=== PATIENT | female | born 1945 | race Caucasian/White ===

== ENCOUNTER → 2016-06-12 | Outpatient (CLI) | payer MEDICARE, OTHER | END | disposition home or self-care (01) | LOC: GMAH 10:39 | PROVIDERS: ATTEND Family Medicine | DX: E78.2 Mixed hyperlipidemia (principal) ==

== ENCOUNTER → 2016-12-13 | Outpatient (CLI) | payer MEDICARE, OTHER | END | disposition home or self-care (01) | LOC: GMAH 10:29 | PROVIDERS: ATTEND Family Medicine | DX: E78.2 Mixed hyperlipidemia (principal) ==

== ENCOUNTER → 2017-01-18 | Outpatient (CLI) | payer MEDICARE, OTHER | END | disposition home or self-care (01) | LOC: LAB.O 14:57 | PROVIDERS: ATTEND Psychiatry & Neurology Neurology | DX: M32.10 Systemic lupus erythematosus, organ or system involvement unspecified (principal); R53.83 Other fatigue; E11.9 Type 2 diabetes mellitus without complications; M25.50 Pain in unspecified joint; R41.3 Other amnesia; F90.9 Attention-deficit hyperactivity disorder, unspecified type; M33.90 Dermatopolymyositis, unspecified, organ involvement unspecified; R50.9 Fever, unspecified; E03.9 Hypothyroidism, unspecified; M51.16 Intervertebral disc disorders with radiculopathy, lumbar region; M35.1 Other overlap syndromes; G35 Multiple sclerosis; G70.00 Myasthenia gravis without (acute) exacerbation; G04.89 Other myelitis; M54.81 Occipital neuralgia; H46.9 Unspecified optic neuritis; M19.90 Unspecified osteoarthritis, unspecified site; M33.22 Polymyositis with myopathy; G61.81 Chronic inflammatory demyelinating polyneuritis; B02.29 Other postherpetic nervous system involvement; M31.6 Other giant cell arteritis; I77.9 Disorder of arteries and arterioles, unspecified; E53.8 Deficiency of other specified B group vitamins; E55.9 Vitamin D deficiency, unspecified ==

== ENCOUNTER 2017-03-22 15:00 | Inpatient (IN) | payer MEDICARE, OTHER ==
--- NOTE | 2017-03-22 15:03 | HP ---
HISTORY OF PRESENT ILLNESS: This 71 year-old white female is a direct admission from Dr. Gustafson's office. She has been getting progressively worse over the last 5 days with sore throat and cough with shortness of breath. She was seen in the clinic of Dr. Gustafson's on Sunday, which was 3 days ago, and had a positive Strep. She received 500 mg of Ancef IM and was started on Keflex 500 mg t.i.d., and has taken it faithfully for the last 3 days. She has gotten worse subsequently with a temperature of 102 degrees yesterday. Cough has been increasing. No evidence of aspiration. She has had fever and chills and her voice has been somewhat hoarse, and been unable to fully talk in full sentences without her voice cracking. Because of the fact that she is getting worse and on chest x-ray today in the clinic showed a left lower lobe infiltrate suggesting a pneumonia. The patient is admitted to the hospital for initiation of pulmonary hygiene, bronchodilation, parenteral antibiotic use and close observation and support. She cannot take corticosteroids because of bad reactions. PAST MEDICAL HISTORY: 1. Coronary artery disease with a couple of stents after angioplasty performed by Dr. Fontana. 2. Hypertension. 3. Hyperlipidemia. 4. History of sick sinus syndrome requiring a pacemaker insertion in 2001. 5. More recently a Strep pharyngitis still symptomatic. PAST SURGICAL HISTORY: 1. Hysterectomy. 2. Appendectomy. 3. Gallbladder removal. 4. Left arm fracture. 5. Two coronary stents after angioplasty. CURRENT MEDICATIONS: Please refer to nurses' notes for a list of medications verified to be taken. ALLERGIES: LOVENOX AND STEROIDS WHICH HAVE AN ADVERSE REACTION FOR HER. FAMILY HISTORY: Positive for heart valves in her brother and diabetes mellitus. 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 She has never smoked. Her primary care physician is Dr. Gustafson and her parking technician is Dr. Fontana. REVIEW OF SYSTEMS: Fairly significant weight gain recently, encouraged to try to help get it off in the future as possible. Some fever and chills with her current illness. HEENT: She does wear hearing aids. Vision is fairly good. LUNGS: Significant exertional dyspnea is evident. Frequent coughing and a small amount of sputum is present. No hemoptysis. CARDIOVASCULAR: No significant chest pains currently and no significant dysrhythmias or palpitations. GASTROINTESTINAL: Appetite is only fair. No significant pain and no constipation. No bleeding in the bowel movements. GENITOURINARY: No dysuria. EXTREMITIES: Trace of edema noted at times. NEUROLOGIC: Somewhat tired generally. No focal weakness. No significant headaches. PHYSICAL EXAMINATION: VITAL SIGNS: Afebrile, pulse 69, blood pressure 189/78, pulse oximetry 96% on room air. Weight 104.9 kilos from the bed scale. GENERAL: The patient is awake, alert and oriented. The patient is a fairly good historian but she does have some difficulty speaking because of some hoarseness and rattliness in her throat. CHEST: Lungs are noted to have somewhat diminished breath sounds but fairly equal bilaterally, especially in the bases with some fine rales noted initially which cleared with deep inspirations, especially in the left base. CARDIOVASCULAR: Heart tones are somewhat distant yet appear to be regular. ABDOMEN: Obese yet soft with no organomegaly, masses or tenderness. EXTREMITIES: Only a trace of edema of the lower extremities more on the right than the left. NEUROLOGIC: No focal neurological deficits. The patient is otherwise awake, alert and oriented and communicative. LABORATORY STUDIES: Pending. X-RAY: X-ray performed in Dr. Gustafson's office showed a left lower lobe infiltrate with repeat in the morning for comparison view after some overnight IV hydration. DIAGNOSES ON ADMISSION: 1. Acute left lower lobe pneumonia probable community acquired failing outpatient therapy and requiring admission for supportive care, initiation of parenteral antibiotics with bronchial hygiene and observation. 2. History of coronary artery disease with 2 coronary stents after angioplasty. 3. History of hypertension. 4. History of hyperlipidemia. 5. History of sick sinus syndrome requiring pacemaker defibrillator insertion in 2001. 6. History of recent positive Streptococcus pharyngitis diagnosed at the onset of her current illness. 7. Exogenous obesity. 8. Febrile illness probably related to the underlying pneumonia process. 9. Hoarseness. Observe for neurological versus secretory etiologies. PLAN: Continue treatment with bronchial hygiene and pulmonary bronchodilators with parenteral antibiotics including Rocephin and Azithromycin after procurement of blood cultures and other lab studies today. Support the cough with some Tessalon. Observe closely and adjust treatment as required. Close followup with Dr. Gustafson on discharge for outpatient followup and management after condition stabilized. #[id number] [facility]
[2017-03-22] MEDS ORDERED: ALBUTEROL SULFATE 2.5 MG/3 ML VIAL NEB PRN (16:13)
[2017-03-22] MEDS ORDERED: ACETAMINOPHEN 325 MG TAB PO PRN (16:13)
[2017-03-22] MEDS ORDERED: TEMAZEPAM 15 MG CAP PO PRN (16:13)
[2017-03-22] MEDS ORDERED: HYDROcodone 5MG/APAP 325MG 1 EA TAB PO PRN (16:13)
[2017-03-22] MEDS ORDERED: MAGNESIUM HYDROXIDE 30 ML UD PO PRN (16:13)
[2017-03-22] MEDS ORDERED: AZITHROMYCIN IV 500 MG in SODIUM CHLORIDE 0.9% 250ML 250 ML IVPB SCH (16:30)
[2017-03-22] MEDS ORDERED: SODIUM CHLORIDE 0.9% 250ML 250 ML ONE (16:54)
[2017-03-22] MEDS ORDERED: AZITHROMYCIN IV 500 MG VIAL IVPB ONE (16:54)
[2017-03-22] MEDS ORDERED: SODIUM CHL 0.9% 50ML MIN-BAG+ 50 ML IVPB ONE (16:54)
[2017-03-22] MEDS ORDERED: cefTRIAXone SODIUM 1 GM VIAL ONE (16:54)
[2017-03-22] MEDS: IV SET AND CAP CHANGE INJ INJ SCH (17:00)
[2017-03-22] MEDS: SODIUM CHLORIDE 0.9% 1000ML 1,000 ML IVS PRN (17:00)
[2017-03-22] MEDS: cefTRIAXone SODIUM 1 GM in SODIUM CHL 0.9% 50ML MIN-BAG+ 50 ML IVPB SCH (17:00)
[2017-03-22] MEDS ORDERED: traMADol HCL 50 MG TAB PO PRN (21:55)
[2017-03-22] MEDS ORDERED: RIVAROXABAN 10 MG TAB ONE (22:14)
[2017-03-22] MEDS: BENZONATATE PERLES 100 MG CAP PO PRN (22:17)
[2017-03-23] MEDS ORDERED: SODIUM CHL 0.9% 50ML MIN-BAG+ 50 ML IVPB ONE ×3 (04:32→23:03)
[2017-03-23] MEDS ORDERED: cefTRIAXone SODIUM 1 GM VIAL ONE ×3 (04:33→23:03)
[2017-03-23] MEDS: cefTRIAXone SODIUM 1 GM in SODIUM CHL 0.9% 50ML MIN-BAG+ 50 ML IVPB SCH ×2 (04:41→16:44)
[2017-03-23] MEDS: OMEPRAZOLE CAP 20 MG CAP PO SCH (06:15)
[2017-03-23] MEDS: SODIUM CHLORIDE 0.9% 1000ML 1,000 ML IVS PRN (06:15)
[2017-03-23] MEDS: LEVALBUTEROL NEBS 1.25 MG/3 ML VIAL INH SCH ×4 (07:21→23:22)
[2017-03-23] MEDS: LOSARTAN POTASSIUM 25 MG TAB PO SCH (08:38)
[2017-03-23] MEDS: FUROSEMIDE 40 MG TAB PO SCH (08:38)
[2017-03-23] MEDS: SPIRONOLACTONE 25 MG TAB PO SCH (08:38)
[2017-03-23] MEDS: AMIODARONE HCL 200 MG TAB PO SCH (08:38)
[2017-03-23] MEDS: NON-FORMULARY MEDICATION 1 EA MIS (Nebivolol Hcl [Bystolic] 10 MG) PO SCH (08:59)
--- NOTE | 2017-03-23 09:10 | RAD ---
EXAM DESCRIPTION: XR CHEST 2 VIEWS CLINICAL HISTORY: Pneumonia COMPARISON: 12/30/2015 TECHNIQUE: PA/lateral FINDINGS: Cardiac pacemaker. Cardiomegaly with vascular congestion. No edema. No alveolar infiltrate or effusion IMPRESSION: Cardiomegaly and vascular congestion. No focal infiltrate identified Electronically signed by: Fede Knapp MD 03/23/2017 9:09 AM [employer]
[2017-03-23] MEDS: SODIUM CHLORIDE 0.9% (FLUSH) 10 ML SYG IV SCH ×2 (10:24→21:01)
[2017-03-23] MEDS ORDERED: BENZOCAINE-MENTH LOZ (CEPACOL) 1 EA LOZ MT PRN (10:39)
[2017-03-23] MEDS ORDERED: FUROSEMIDE INJ 20 MG/2 ML VIAL IV ONE (11:00)
--- NOTE | 2017-03-23 11:22 | PN ---
SUPERVISING PHYSICIAN: Ilya Clemons MD DATE: 03/23/17 SUBJECTIVE: The patient is sitting on the side of her bed. She complains of coughing and also complains of shortness of breath with the coughing, but otherwise has no complaints of chest pain, nausea, vomiting or diarrhea. She continues to feel like her throat is sore and she feels slightly "puffy." OBJECTIVE: VITAL SIGNS: Afebrile. Heart rate 72. Blood pressure 128/56. Respiratory rate 18. Respiratory rate has been as high as 21. O2 saturation 94 %. LUNGS: Scattered crackles throughout and diminished at the bases, especially on the left lower base. She does have some mild scattered rhonchi diffusely as well. CARDIAC: Regular rate and rhythm. ABDOMEN: Soft, nondistended, nontender. Bowel sounds are positive. EXTREMITIES: No cyanosis or clubbing. There is a trace of edema. Bilateral pedal pulses are palpable. NEUROLOGIC: Awake, alert and oriented times three. LABORATORY: WBC 6.3, hemoglobin 11.1, hematocrit 33.7, platelet count 199. Electrolytes are basically within normal limits with the exception of her carbon dioxide is low at 20. BUN 29, creatinine 1.4. Baseline creatinine runs about 0.9 to 1. BNP 335. AST 46, alkaline phosphatase 34, TSH 1.7. Preliminary blood cultures are negative. Chest x-ray shows cardiomegaly with vascular congestion. All other labs and films have been reviewed via the EMR. ASSESSMENT: 1. Acute left lower lobe pneumonia, most likely community acquired that has failed outpatient therapy with present blood cultures pending. 2. History of coronary artery disease with 2 coronary stents after angioplasty. 3. Hypertension. 4. Hyperlipidemia. 5. History of sick sinus syndrome requiring pacemaker/defibrillator insertion in 2001. 6. History of recent positive Streptococcus pharyngitis as outpatient and placed on Keflex. 7. Exogenous obesity. 8. Febrile illness, most likely related to the underlying pneumonia. 9. Hoarseness. Observe for neurological versus secretory etiologies. PLAN: We will continue present supportive care including azithromycin and Rocephin. I have also ordered a sputum culture as she is coughing up quite a bit at this point. I will also get some cough lozenges and saline lock her IV. We will give her a very small dose of Lasix to help with the edema. I have encouraged her to increase her ambulation as well as continue good pulmonary hygiene. I will also order some percussion and labs for in the morning as well as chest x-ray. We will continue to monitor the patient closely and follow as needed. Dr. Clemons is the collaborating physician and available for consultation. #[id number] [facility]
[2017-03-23] MEDS ORDERED: SODIUM CHLORIDE 0.9% 250ML 250 ML ONE (16:34)
[2017-03-23] MEDS ORDERED: AZITHROMYCIN IV 500 MG VIAL IVPB ONE (16:35)
[2017-03-23] MEDS: AZITHROMYCIN IV 500 MG in SODIUM CHLORIDE 0.9% 250ML 250 ML IVPB SCH (17:27)
[2017-03-23] MEDS: RIVAROXABAN 10 MG TAB PO SCH (21:00)
[2017-03-23] MEDS ORDERED: NON-FORMULARY MEDICATION 1 EA MIS (Rivaroxaban [Xarelto] 20 MG) PO SCH (21:00)
[2017-03-23] MEDS: BENZONATATE PERLES 100 MG CAP PO PRN (21:01)
[2017-03-24] MEDS: cefTRIAXone SODIUM 1 GM in SODIUM CHL 0.9% 50ML MIN-BAG+ 50 ML IVPB SCH ×2 (04:22→16:40)
[2017-03-24] MEDS: SODIUM CHLORIDE 0.9% (FLUSH) 10 ML SYG IV PRN (04:22)
[2017-03-24] MEDS: OMEPRAZOLE CAP 20 MG CAP PO SCH (06:01)
[2017-03-24] MEDS: LEVALBUTEROL NEBS 1.25 MG/3 ML VIAL INH SCH ×2 (07:30→16:55)
--- NOTE | 2017-03-24 07:44 | RAD ---
EXAM DESCRIPTION: Chest,2 Views CLINICAL HISTORY: Pneumonia COMPARISON: March 23, 2017 TECHNIQUE: PA/lateral FINDINGS: Cardiomegaly with mild vascular prominence but without overt failure. No discrete parenchymal consolidation. No effusion. Multilead pacing device unchanged. IMPRESSION: 1. Cardiomegaly with vascular congestion stable since comparison study yesterday Electronically signed by: Kem Apodaca MD 03/24/2017 7:43 AM [facility]
[2017-03-24] MEDS: LOSARTAN POTASSIUM 25 MG TAB PO SCH (08:13)
[2017-03-24] MEDS: AMIODARONE HCL 200 MG TAB PO SCH (08:13)
[2017-03-24] MEDS: NON-FORMULARY MEDICATION 1 EA MIS (Nebivolol Hcl [Bystolic] 10 MG) PO SCH (08:13)
[2017-03-24] MEDS: SPIRONOLACTONE 25 MG TAB PO SCH (08:13)
[2017-03-24] MEDS: FUROSEMIDE 40 MG TAB PO SCH (08:13)
[2017-03-24] MEDS: SODIUM CHLORIDE 0.9% (FLUSH) 10 ML SYG IV SCH ×2 (08:13→21:29)
[2017-03-24] MEDS ORDERED: SODIUM CHL 0.9% 50ML MIN-BAG+ 50 ML IVPB ONE (15:38)
[2017-03-24] MEDS ORDERED: AZITHROMYCIN IV 500 MG VIAL IVPB ONE (15:38)
[2017-03-24] MEDS ORDERED: cefTRIAXone SODIUM 1 GM VIAL ONE (15:38)
[2017-03-24] MEDS ORDERED: SODIUM CHLORIDE 0.9% 250ML 250 ML ONE (15:38)
[2017-03-24] MEDS: AZITHROMYCIN IV 500 MG in SODIUM CHLORIDE 0.9% 250ML 250 ML IVPB SCH (17:28)
--- NOTE | 2017-03-24 18:14 | PN ---
DATE: 03/24/17 SUPERVISING PHYSICIAN: Ilya Clemons M.D. SUBJECTIVE: The patient is sitting up in a chair in her hospital room. She complains of a deep cough that comes and goes. It is especially problematic after exertion. She does have some shortness of breath after exertion. Otherwise no complaints of chest pain, nausea, vomiting, diarrhea or constipation. She is feeling better but still feels somewhat weak at times. OBJECTIVE: VITAL SIGNS: She is afebrile, heart rate 72, blood pressure 144/76, respiratory rate 20, O2 sat is 93%. RESPIRATORY: Scattered rhonchi throughout, slightly diminished at the bases. No wheezing or crackles noted. CARDIAC: Regular rate and rhythm. ABDOMEN: Soft, nondistended, non-tender. Bowel sounds are positive. EXTREMITIES: No cyanosis, clubbing or edema. NEUROLOGIC: She is awake, alert and oriented times three. LABORATORY: Her white count is normal at 5.5 with hemoglobin and hematocrit of 11.0 and 33.7. Electrolytes are basically within normal limits with BUN 29, creatinine 1.29. RADIOLOGY: Chest x-ray per radiology interpretation shows cardiomegaly with vascular congestion that is stable since comparison study yesterday. All other labs and films have been reviewed via the EMR. ASSESSMENT: 1. Acute left lower lobe pneumonia most likely community acquired that has failed outpatient therapy and present blood culture showing no growth after 24 hours and her preliminary sputum culture shows normal tray. 2. History of coronary artery disease with 2 coronary stents after angioplasty. 3. Hypertension. 4. Hyperlipidemia. 5. History of sick sinus syndrome requiring pacemaker/defibrillator insertion in 2001. 6. History of recent positive Streptococcus pharyngitis as outpatient placed on Keflex. 7. Exogenous obesity. 8. Febrile illness most likely related to the underlying pneumonia. 9. Hoarseness. PLAN: We will continue present supportive care. She has been instructed to continue with her good pulmonary hygiene and to ambulate more in the halls. She should be able to be discharged tomorrow. I have repeated some labs for in the morning to make sure they remain stable. I have added Mucinex. We will continue to monitor the patient closely. Plan for discharge tomorrow. Dr. Clemons is the collaborating physician available for consultation. #[id number] [facility]
[2017-03-24] MEDS: guaiFENesin ER TAB 600 MG TAB PO SCH (20:59)
[2017-03-24] MEDS: RIVAROXABAN 10 MG TAB PO SCH (20:59)
[2017-03-24] MEDS: BENZONATATE PERLES 100 MG CAP PO PRN (22:46)
[2017-03-25] MEDS: LEVALBUTEROL NEBS 1.25 MG/3 ML VIAL INH SCH ×3 (00:16→16:07)
[2017-03-25] MEDS ORDERED: SODIUM CHL 0.9% 50ML MIN-BAG+ 50 ML IVPB ONE ×2 (04:19→16:13)
[2017-03-25] MEDS ORDERED: cefTRIAXone SODIUM 1 GM VIAL ONE ×2 (04:20→16:14)
[2017-03-25] MEDS: SODIUM CHLORIDE 0.9% (FLUSH) 10 ML SYG IV PRN (04:24)
[2017-03-25] MEDS: cefTRIAXone SODIUM 1 GM in SODIUM CHL 0.9% 50ML MIN-BAG+ 50 ML IVPB SCH ×2 (04:25→16:22)
[2017-03-25] MEDS: OMEPRAZOLE CAP 20 MG CAP PO SCH (06:20)
[2017-03-25] MEDS: NON-FORMULARY MEDICATION 1 EA MIS (Nebivolol Hcl [Bystolic] 10 MG) PO SCH (09:37)
[2017-03-25] MEDS: LOSARTAN POTASSIUM 25 MG TAB PO SCH (09:37)
[2017-03-25] MEDS: SPIRONOLACTONE 25 MG TAB PO SCH (09:37)
[2017-03-25] MEDS: FUROSEMIDE 40 MG TAB PO SCH (09:37)
[2017-03-25] MEDS: SODIUM CHLORIDE 0.9% (FLUSH) 10 ML SYG IV SCH ×2 (09:37→20:44)
[2017-03-25] MEDS: AMIODARONE HCL 200 MG TAB PO SCH (09:37)
[2017-03-25] MEDS: guaiFENesin ER TAB 600 MG TAB PO SCH ×2 (09:40→20:44)
--- NOTE | 2017-03-25 13:44 | PCM.CORE ---
Physician DVT/VTE - Prophylaxis Currently: Patient already on anticoagulation therapy - xarelto - Nurse DVT Assessment & Total Each Risk Factor Represents 2 Points: Age 60-74 Each Risk Factor is 1 Point: Obesity (BMI >25), Serious Lung disease (pnemonia < 1month, COPD, emphysema,etc) DVT Assessment Score: 4 - 3-4 High Risk Treatments: Early Ambulation *, Sequential Compression Device
--- NOTE | 2017-03-25 15:58 | PN ---
DATE: 03/25/17 SUPERVISING PHYSICIAN: Ilya Clemons M.D. SUBJECTIVE: The patient is sitting on the edge of the bed. She continues to have a nonproductive cough that does result in her having some shortness of breath. She also continues to have some exertional dyspnea. She is noting that she is weak and is concerned that she is not able to function fully at home that is safe if she goes home today as she is only able to barely walk from the hallway without getting significantly short of breath and feeling very weak. OBJECTIVE: VITAL SIGNS: She remains afebrile, temperature 97.9, pulse 72, blood pressure 160/71, respiratory rate 20, satting 97% on room air at rest. Ambulation studies showed that she was satting 96% prior to ambulation and was able to ambulate 224 feet with only a mild desaturation to 94 on room air. The patient noted that she was weak. CHEST: Lung sounds are diminished with no obvious wheezing but continues with some faint rhonchi throughout. HEART: Slightly irregular rate and rhythm. ABDOMEN: Soft, nondistended, non-tender with positive bowel sounds. EXTREMITIES: No cyanosis, clubbing or edema. NEUROLOGIC: She is alert and oriented times three. LABORATORY: White count is 7,000, hemoglobin 10.9, hematocrit 33.4, platelet count 210,000. Differential today shows without a left shift. Chemistries show normal electrolytes with potassium 4.0, BUN 22, creatinine 1.16. MICROBIOLOGY: Blood cultures remain negative at 48 hours. Sputum culture showed normal tray at 24 hours. RADIOLOGY: No additional radiographic studies were available for review. ASSESSMENT: 1. Acute left lower lobe pneumonia community acquired having failed to respond to outpatient treatment plan requiring initiation of aggressive bronchial hygiene and parenteral antibiotics showing slow improvement. 2. History of coronary artery disease with 2 coronary stents. 3. Hypertension. 4. Hyperlipidemia. 5. History of sick sinus syndrome requiring pacemaker defibrillator insertion in 2001. 6. History of recently being treated for Streptococcus pharyngitis on Keflex previously. 7. Exogenous obesity. 8. Febrile illness related to underlying pneumonia. 9. Hoarseness related to underlying upper respiratory infection with acute bronchitis secondary to previous Streptococcus pharyngitis with pneumonia left lower lobe as noted in #1. 10. Deconditioning secondary to #1. PLAN: The patient is showing continued need for ongoing aggressive pulmonary hygiene and an additional 24 hours of IV antibiotics. She is concerned that she does live alone and is significantly weakened and deconditioned at this point, and is afraid that she will be unable to safely take care of herself tonight. I discussed with her that we will ambulate her in efforts to increase her endurance and continue with the current treatment with aggressive pulmonary hygiene and antibiotics with anticipation of discharging home tomorrow, or if continues to show significant deconditioning possible admission to [facility] for ongoing physical therapy and reconditioning. Until discharge, will continue to monitor and treat appropriately. #[id number] [facility]
[2017-03-25] MEDS ORDERED: SODIUM CHLORIDE 0.9% 250ML 250 ML ONE (16:13)
[2017-03-25] MEDS ORDERED: AZITHROMYCIN IV 500 MG VIAL IVPB ONE (16:14)
[2017-03-25] MEDS: AZITHROMYCIN IV 500 MG in SODIUM CHLORIDE 0.9% 250ML 250 ML IVPB SCH (17:22)
[2017-03-25] MEDS: IV SET AND CAP CHANGE INJ INJ SCH (18:50)
[2017-03-25] MEDS: BENZONATATE PERLES 100 MG CAP PO PRN (20:44)
[2017-03-25] MEDS: RIVAROXABAN 10 MG TAB PO SCH (20:44)
[2017-03-26] MEDS: LEVALBUTEROL NEBS 1.25 MG/3 ML VIAL INH SCH ×2 (00:30→08:50)
[2017-03-26] MEDS ORDERED: SODIUM CHL 0.9% 50ML MIN-BAG+ 50 ML IVPB ONE (04:21)
[2017-03-26] MEDS ORDERED: cefTRIAXone SODIUM 1 GM VIAL ONE (04:21)
[2017-03-26] MEDS: SODIUM CHLORIDE 0.9% (FLUSH) 10 ML SYG IV PRN (04:41)
[2017-03-26] MEDS: cefTRIAXone SODIUM 1 GM in SODIUM CHL 0.9% 50ML MIN-BAG+ 50 ML IVPB SCH (04:42)
[2017-03-26] MEDS: OMEPRAZOLE CAP 20 MG CAP PO SCH (06:31)
--- NOTE | 2017-03-26 07:19 | RAD ---
EXAM DESCRIPTION: Chest,2 Views CLINICAL HISTORY: pneumonia COMPARISON: March 24, 2017 FINDINGS: A multilead cardiac pacemaker remains in place. The heart is slightly enlarged but stable. Bilateral perihilar interstitial prominence is noted, extending into the left lung base. No airspace consolidation or pleural effusion. There is no pneumothorax or acute fracture. IMPRESSION: Stable cardiomegaly with probable pulmonary vascular congestion, also unchanged from 2 days prior. Left basilar pneumonia is a less likely consideration. Electronically signed by: Adolfo Pillai MD 03/26/2017 7:18 AM [facility]
[2017-03-26] MEDS: LOSARTAN POTASSIUM 25 MG TAB PO SCH (08:47)
[2017-03-26] MEDS: guaiFENesin ER TAB 600 MG TAB PO SCH (08:47)
[2017-03-26] MEDS: SODIUM CHLORIDE 0.9% (FLUSH) 10 ML SYG IV SCH (08:48)
[2017-03-26] MEDS: FUROSEMIDE 40 MG TAB PO SCH (08:48)
[2017-03-26] MEDS: AMIODARONE HCL 200 MG TAB PO SCH (08:48)
[2017-03-26] MEDS: SPIRONOLACTONE 25 MG TAB PO SCH (08:48)
[2017-03-26] MEDS: NON-FORMULARY MEDICATION 1 EA MIS (Nebivolol Hcl [Bystolic] 10 MG) PO SCH (08:50)
[2017-03-26] MEDS ORDERED: AZITHROMYCIN 250 MG TAB PO ONE (09:26)
[2017-03-26 10:16] VITALS: BP 145/71; TEMP 98; O2SAT 97
--- NOTE | 2017-04-01 20:25 | DS ---
SUPERVISING PHYSICIAN: Fede Mcgarry M.D. DISCHARGE DIAGNOSIS: 1. Acute left lower lobe pneumonia community acquired having failed to respond to outpatient treatment plan requiring hospitalization for initiation of aggressive bronchial hygiene and parenteral antibiotics showing good clinical improvement prior to discharge. 2. History of coronary artery disease with 2 coronary stents previously. 3. Hypertension. 4. Hyperlipidemia. 5. History of sick sinus syndrome requiring pacemaker defibrillator insertion in 2001. 6. History of recently being treated for Streptococcus pharyngitis on Keflex previously. 7. Exogenous obesity. 8. Febrile illness related to underlying pneumonia. 9. Hoarseness related to underlying upper respiratory infection with acute bronchitis secondary to previous Streptococcus pharyngitis with pneumonia left lower lobe as noted in #1. 10. Deconditioning secondary to #1. REASON FOR HOSPITALIZATION: Ms. Mcdonald is a 71 year-old female patient of Dr. Gustafson'hannah. She was directly admitted from Dr. Gustafson's office. It was noted that she had been getting progressively worse over the last 5 days with sore throat and cough with shortness of breath. She had been seen in the clinic by Dr. Gustafson on the Sunday prior to admission which was 3 days previous, and had a positive Strep screen. She received 500 mg of Ancef IM and was started on Keflex 500 mg t.i.d., and had been taking it faithfully for the last 3 days prior to admission. She had gotten worse subsequently with a temperature of 102 degrees. Cough had been increasing. There was no evidence of aspiration. She has had fever and chills and her voice has been somewhat hoarse, and has been unable to fully talk in full sentences without her voice cracking. Because of the fact that she is getting worse and on chest x-ray in the clinic showed a left lower lobe infiltrate suggesting a pneumonia, the patient is admitted to the hospital for initiation of ongoing treatment with pulmonary hygiene, bronchodilation, parenteral antibiotics and close observation. It is noted that she cannot take corticosteroids due to a bad reaction. LABORATORY: White count on admission was 6,900, at discharge was 7,000. Hemoglobin and hematocrit were stable and at discharge were 10.9 and 32.4. Platelet count 210,000. Differential never showed a left shift. Chemistries showed normal electrolytes on admission and at discharge. BUN initially was 28 , creatinine 1.4, at discharge creatinine was 1.16, BUN was 22. Calcium was normal at 9.0. She had an elevated BNP that was 355. She had a slightly elevated AST that was 46, ALT was normal at 43, alkaline phosphatase was 34. Urinalysis showed to be within normal limits. MICROBIOLOGY: She had a sputum culture that showed normal tray at 48 hours. She had 2 sets of blood cultures that were negative at 5 days. RADIOLOGY: Initial chest x-ray on the morning after admission per radiology interpretation 2 view showed no focal infiltrate identified with cardiomegaly and vascular congestion. She had several repeated chest x-rays and on the morning of discharge final x-ray per radiology interpretation 2 view showed stable cardiomegaly with probable pulmonary vascular congestion, unchanged 2 days previously with left basilar pneumonia was less likely consideration. HOSPITAL COURSE: Ms. Mcdonald was admitted to the hospital as noted for treatment of underlying exacerbation of COPD and pneumonia. She was started on antibiotics initially with Azithromycin and Rocephin. She was started on breathing treatments with Xopenex and showed good clinical response, and felt clinically stable enough and improved to be discharged home to continue with outpatient treatment. PLAN: Ms. Mcdonald was discharged on 03/26/17 with instructions to followup in the clinic with Dr. Gustafson as scheduled on 03/29/17. She was encouraged to take a probiotic of choice [id number] for 10 days to help prevent diarrhea associated with antibiotics. She is to return to the hospital should any concerning symptoms. Diet at discharge was usual diet. Activity was to increase activity as tolerated. New prescriptions at discharge included: 1. Xopenex 1.25 mg every 4 hours as needed, #30. 2. Tessalon Perles 100 mg 3 times a day as needed, #20. 3. Ceftin 500 mg twice daily, #10. All other medications prior to admission were continued. Discharge condition was stable and improved. #[id number] [facility]
== END 2017-03-26 11:05 | disposition home or self-care (01) | DRG 190 ==
LOC: MS 15:00
PROVIDERS: ADMIT Emergency Medicine; ATTEND Nurse Practitioner Family
DX: J44.0 Chronic obstructive pulmonary disease with (acute) lower respiratory infection (principal); J18.9 Pneumonia, unspecified organism; Z68.41 Body mass index [BMI] 40.0-44.9, adult; J44.1 Chronic obstructive pulmonary disease with (acute) exacerbation; I25.10 Atherosclerotic heart disease of native coronary artery without angina pectoris; I10 Essential (primary) hypertension; E78.5 Hyperlipidemia, unspecified; R49.0 Dysphonia; J20.2 Acute bronchitis due to streptococcus; E66.9 Obesity, unspecified; Z88.8 Allergy status to other drugs, medicaments and biological substances; Z95.5 Presence of coronary angioplasty implant and graft; Z95.0 Presence of cardiac pacemaker

== ENCOUNTER → 2017-07-05 | Outpatient (CLI) | payer MEDICARE, OTHER ==
--- NOTE | 2017-07-05 10:56 | CT ---
EXAM DESCRIPTION: Cervical Spine CLINICAL HISTORY: RADICULOPATHY COMPARISON: None Available. TECHNIQUE: Cervical CT is performed with thin-section axial imaging. MPRs are created and reviewed as well. This exam was performed according to our departmental dose-optimization program, which includes automated exposure control, adjustment of the mA and/or kV according to patient size and/or use of iterative reconstruction technique. FINDINGS: CT of the cervical spine demonstrates reversal of the normal lordosis with advanced multilevel disc degenerative disease with at all levels with relative sparing of the C2-3 to C7-T1 level. Large anterior spurs are present at C3-4, C4-5, and C5-6. Bone window images demonstrate no evidence of fracture or subluxation with at least mild posterior bony ridging most prominent at C4-5 and C5-6 and to a lesser extent C6-7 that appears to be partially fused at the disc space and with minimal one or 2 mm of anterior subluxation at the C3-4 level on a degenerative basis anterior degenerative changes at the C1-2 articulation are noted with and adequate foramen magnum and upper cervical spinal canal. Central canal is widely patent at C2-3 with some uncinate process hypertrophy encroaching upon the entrance to the left neural foramen. The right foramen is adequate. At C3-4 mild annular bulge and/or bony ridging is present with adequate canal and neural foramina. At C4-5 bony ridging diffusely and moderate AP diameter canal narrowing on a degenerative basis is present with mild narrowing of both neural foramina. At C5-C6 disc narrowing and broad-based disc osteophyte complex with borderline AP diameter canal stenosis and right foraminal narrowing is present. A lateralizing herniation is not apparent. At C6-C7, bony ridging in the midline with moderate AP diameter canal narrowing is present with a partially fused disc space and mildly narrowed foramen and symmetrically. At C7-T1, mild annular bulge and borderline AP diameter canal narrowing is present. Severe facet arthropathy is not present on either the right or left with only mild degenerative changes noted. IMPRESSION: Multilevel advanced degenerative disc disease and loss of normal lordosis with multilevel annular bulges and posterior bony ridging with AP diameter canal stenosis as noted above and modest foraminal narrowing. No malalignment of the bony spine is seen and no fracture or significant abnormal subluxation noted. Very little facet arthropathy noted. Electronically signed by: Fede Weiner MD 07/05/2017 10:55 AM CDT
--- NOTE | 2017-07-05 11:08 | CT ---
EXAM DESCRIPTION: Lumbar Spine CLINICAL HISTORY: 72 years, Female, RADICULOPATHY COMPARISON: None TECHNIQUE: Lumbar CT with thin-section axial imaging with reconstructed MPR images reviewed as well. This exam was performed according to our departmental dose-optimization program, which includes automated exposure control, adjustment of the mA and/or kV according to patient size and/or use of iterative reconstruction technique. FINDINGS: CT of the lumbar spine demonstrates multilevel disc degeneration with significant narrowing anteriorly at the T12-L1 level and significant posterior bony ridging and spurring at the L1-2 level and disc calcification at the better preserved the disc space L2-3. Vertebral height is maintained with essentially normal alignment with rather marked hypertrophic changes in the lower lumbar spine facet joints particularly on the left at L4-5 and on the right at this level and L5-S1. The disc contour at T10-11 is essentially normal and a modest annular bulge with thecal sac lower limits of normal at T11-12 is noted with minimal annular prominence posteriorly at the T12-L1 level. At L1-2 some disc calcification and a moderate annular bulge of the disc osteophyte complex with some calcification of the posterior annulus is evident slightly more prominent on the left than the right with left greater than right facet arthropathy and underlying multifactoral spinal stenosis with some encroachment in the region of the left lateral recess. Moderately narrowed left L1 neural foramen and milder narrowed right L1 neural foramen noted. Disc calcification at L2-3 borderline Stenosis with disc calcification at L2-3 with modest annular bulge and modest left greater than right facet arthropathy with borderline symmetric AP diameter canal stenosis evident. The neural foramina are adequate. At L3-4 moderate symmetric annular bulge with moderately severe facet arthropathy with medial bony overgrowth and ligamentum flavum hypertrophy with multifactoral severe central stenosis predominantly in a transverse diameter. The neural foramina are adequate. At L4-5, very severe multifactoral central stenosis with markedly hypertrophic and degenerative facet joints and modest annular bulge. Almost no remaining spinal canal or thecal sac is noted with adequate neural foramina bilaterally. At L5-S1: Annular bulge with adequate central canal and right greater than left facet arthropathy with modest bilateral foraminal encroachment particularly inferiorly on the left internal lesser extent on the right. IMPRESSION: 1. Moderately severe L3-4 and very severe L4-5 multifactoral central stenosis secondary to facet arthropathy and annular bulges. 2. Borderline spinal canal stenosis at L2-3 and at L1-2. 3. Adequate central canal L5-S1 with borderline or mild foraminal narrowing secondary to facet arthropathy. Electronically signed by: Fede Weiner MD 07/05/2017 11:07 AM CDT
== END ==
LOC: CT 09:00
PROVIDERS: ATTEND Psychiatry & Neurology Neurology
DX: M54.12 Radiculopathy, cervical region (principal); M48.02 Spinal stenosis, cervical region; M54.16 Radiculopathy, lumbar region; M48.061 Spinal stenosis, lumbar region without neurogenic claudication

== ENCOUNTER → 2017-08-29 | Outpatient (CLI) | payer MEDICARE, OTHER | LOC: GMAH 11:47 | PROVIDERS: ATTEND Family Medicine | DX: I10 Essential (primary) hypertension (principal) ==

== ENCOUNTER → 2017-08-30 | Outpatient (CLI) | payer MEDICARE, OTHER ==
--- NOTE | 2017-09-04 08:26 | MAM ---
EXAM DESCRIPTION: 3D Screening BILATERAL : Digital Mammography. CLINICAL HISTORY: 72 years Female SCREENING . No complaints. No family history breast cancer. Postmenopausal. No HRT. COMPARISON: 2-D digital screening bilateral study 04/02/2014. No prior reports available. TECHNIQUE: Bilateral CC and MLO projection full-field images, 3-D tomosynthesis digital mammographic technique. Also bilateral synthesized CC/ MLO full-field images. CAD not utilized. FINDINGS: The breast parenchymal density pattern is: Scattered areas of fibroglandular density. No skin thickening or nipple retraction bilateral solitary microcalcifications and coarse calcifications. Pacemaker and pacing lead partially obscuring the posterior and upper left breast. Right axillary lymph nodes. No focal, stellate mass or density, focal asymmetry , and no suspicious microcalcifications bilaterally. Stable mammograms compared to prior study, taking into account differences in mammographic technique IMPRESSION: BI-RADS CATEGORY: 2 - BENIGN FINDINGS. FOLLOW UP: Routine digital bilateral screening, one year interval from August 2017. Written communication explaining the IMPRESSION and follow-up, will be mailed to the patient and referring health care provider. According to the [employer], yearly mammograms are recommended starting at age 40 and continuing as long as a woman is in good health. Any breast change noted on a breast self-exam should be reported promptly to the patient's healthcare provider. Breast MRI is recommended for women with an approximately 20-25% or greater lifetime risk of breast cancer, including women with a strong family history of breast or ovarian cancer and women who have been treated for Hodgkin's disease. A negative mammographic report should not delay tissue diagnosis in patients with significant clinical history or physical findings. Extremely dense breast tissue limits the sensitivity of digital mammography. Electronically signed by: Juan Francisco Morin MD 09/04/2017 8:25 AM CDT
== END ==
LOC: MAMMO 14:04
PROVIDERS: ATTEND Family Medicine
DX: Z12.31 Encounter for screening mammogram for malignant neoplasm of breast (principal)

== ENCOUNTER 2017-12-22 17:56 | Emergency (ER) | payer MEDICARE, OTHER ==
[2017-12-22] MEDS ORDERED: SODIUM CHLORIDE 0.9% 1000ML 1,000 ML IVS ONE (18:16)
--- NOTE | 2017-12-22 18:26 | ED.PDOC ---
History of Present Illness - General Chief Complaint: GI Problem Stated Complaint: diarrhea x4 days Time Seen by Provider: 12/22/17 18:15 Source: patient Exam Limitations: no limitations - History of Present Illness Initial Comments: Jazmin Mcdonald 72 y/o female stated that she had watery diarrhea on and off for the last 3 days with abdominal cramps.No nausea/vomiting/fever /chills.No recent antibiotic use ill contact or foreign travel. Timing/Duration: intermittent, other - 3 days Severity: moderate Improving Factors: nothing Worsening Factors: eating Associated Symptoms: other - see hpi Allergies/Adverse Reactions: Allergies Enoxaparin [From Lovenox] Allergy (Verified 12/22/17 18:09) Hives Steroids Allergy (Severe, Uncoded 12/22/17 18:09) Anaphylaxis Pt states that after administration of any steroids her mouth swells and she can not speak Home Medications: Ambulatory Orders Acetaminophen [Tylenol Extra Strength] 500 mg PO Q6H PRN 09/05/12 Ascorbic Acid [Vitamin C] 2,000 mg PO DAILY 09/05/12 Cholecalciferol [Vitamin D3] 1,000 unit PO TID 09/05/12 Fenofibrate 160 mg PO DAILY 09/05/12 Fish Oil-Cholecalciferol [Fish Oil + D3 7866-9264 mg-Unit] 2 cap PO AM 09/05/12 Garlic [Odorless Garlic] 500 mg PO DAILY 09/05/12 Pantoprazole Tablet [Protonix] 40 mg PO DAILY 09/05/12 Furosemide [Lasix] 40 mg PO DAILY 06/02/14 Benzonatate Perles [Tessalon Perles] 200 mg PO TID PRN #20 cap 09/15/15 Tramadol HCl [Ultram] 50 mg PO Q6HRS PRN #20 tab 09/15/15 Amiodarone HCl 200 mg PO DAILY 03/22/17 Atorvastatin Calcium [Lipitor] 20 mg PO DAILY 03/22/17 Losartan Potassium 25 mg PO DAILY 03/22/17 Nebivolol HCl [Bystolic] 10 mg PO DAILY 03/22/17 Rivaroxaban [Xarelto] 20 mg PO BEDTIME 03/22/17 Spironolactone 25 mg PO DAILY 03/22/17 Benzonatate Perles [Tessalon Perles] 100 mg PO TID PRN #20 cap 03/26/17 Cefuroxime Axetil [Ceftin] 500 mg PO BID #10 tab 03/26/17 Levalbuterol Nebs [Xopenex NEBS] 1.25 mg INH Q4HR PRN #30 vial 03/26/17 guaiFENesin ER TAB [Mucinex Tab] 1,200 mg PO BID tab 03/26/17 Review of Systems - Review of Systems Constitutional: States: no symptoms reported EENTM: States: no symptoms reported Respiratory: States: no symptoms reported Cardiology: States: no symptoms reported Genitourinary: States: see HPI Musculoskeletal: States: no symptoms reported Skin: States: no symptoms reported Neurological: States: no symptoms reported Past Medical History (General) - Patient Medical History Hx Seizures: No Hx Stroke: No Hx Dementia: No Hx Asthma: No Hx of COPD: No Hx Cardiac Disorders: Yes - sick sinus syndrome Hx Congestive Heart Failure: No Hx Pacemaker: Yes Hx Hypertension: Yes Hx Thyroid Disease: No Hx Diabetes: No Hx Gastroesophageal Reflux: No Hx Renal Disease: No Hx Cancer: No Hx of HIV: No Hx Hepatitis C: No Hx MRSA: No Surgical History: appendectomy, cholecystectomy, pacemaker, other - hysterectomy - Vaccination History Hx Tetanus, Diphtheria Vaccination: No Hx Influenza Vaccination: Yes Hx Pneumococcal Vaccination: Yes - Social History Hx Tobacco Use: No Hx Chewing Tobacco Use: No Hx Alcohol Use: No Hx Substance Use: No Hx Substance Use Treatment: No Hx Depression: No Hx Physical Abuse: No Hx Emotional Abuse: No Hx Suspected Abuse: No - Activities of Daily Living Patient Lives Alone: Yes Grooming Ability: Standby Assistance Eating (Feeding) Ability: Independent Toileting Ability: Independent - Female History Patient : No Family Medical History - Family History Brother Living Status: Hx Cardiac Disease: Yes - brother/sister Hx Family Cancer: - natividad pondkaiser hartyamile Hx Family;Other: DEMENTIA-mom Grandparents Living Status: Hx Family Cancer: Yes Mother Living Status: Hx Family Asthma: No Hx Family Congestive Heart Failure: No Hx Family Hypertension: No Hx Family Stroke: No Hx Cardiac Disease: No Hx Family Diabetes: No Hx Family Cancer: No Hx Family;Other: Dementia Physical Exam - Physical Exam General Appearance: Alert, Comfortable, No apparent distress Eye Exam: bilateral normal Ears, Nose, Throat: hearing grossly normal, normal ENT inspection Neck: non-tender, full range of motion, supple, normal inspection Respiratory: chest non-tender, lungs clear, normal breath sounds Cardiovascular/Chest: normal peripheral pulses, regular rate, rhythm, no murmur Peripheral Pulses: radial,right: 2+, radial,left: 2+ Gastrointestinal/Abdominal: normal bowel sounds, non tender, soft, no organomegaly Back Exam: no CVA tenderness, no vertebral tenderness Extremity: no pedal edema, no calf tenderness Neurologic: alert, oriented x 3 Skin Exam: normal color, warm/dry Lymphatic: no adenopathy Progress - Progress Progress: 12/22/17 18:38 Vital Signs - 8 hr 12/22/17 18:04 Temperature 99.4 F Pulse Rate [ 70 pulse ox] Respiratory 20 Rate Blood Pressure 134/64 [Left Arm] O2 Sat by Pulse 96 Oximetry - Results/Orders Results/Orders: 12/22/17 18:16 IV Care:Saline Lock per Protoc QSHIFT Laboratory Results - last 24 hr 12/22/17 12/22/17 18:16 18:38 WBC 9.4 RBC 3.97 L Hgb 12.7 Hct 39.1 MCV 98.5 MCH 31.9 H MCHC 32.5 L RDW 13.7 Plt Count 281 MPV 8.6 Absolute Neuts (auto) 6.10 Absolute Lymphs (auto) 2.00 Absolute Monos (auto) 1.10 H Absolute Eos (auto) 0.20 Absolute Basos (auto) 0.00 Neutrophils % 65.0 Lymphocytes % 20.8 Monocytes % 12.0 H Eosinophils % 1.9 Basophils % 0.3 PT 12.3 H INR 1.23 H PTT (SP) 29.6 Sodium 141 Potassium 4.4 Chloride 104 Carbon Dioxide 28 Anion Gap 13.4 BUN 31 H Creatinine 1.49 H BUN/Creatinine Ratio 20.8 H Random Glucose 92 Serum Osmolality 287.4 Calcium 10.2 Magnesium 2.1 Total Bilirubin 0.5 Direct Bilirubin 0.1 Indirect Bilirubin 0.4 AST 23 ALT 24 Alkaline Phosphatase 67 Creatine Kinase 48 CK-MB (CK-2) 1.3 CK-MB (CK-2) % Not Reportable Troponin I 0.03 B-Natriuretic Peptide 168.0 H Serum Total Protein 7.8 Albumin 4.2 Urine Color Yellow Urine Appearance Clear Urine pH 6.0 Ur Specific [place] 1.015 Urine Protein Negative Urine Glucose (UA) Negative Urine Ketones Negative Urine Blood Negative Urine Nitrite Negative Urine Bilirubin Negative Urine Urobilinogen 0.2 Ur Leukocyte Esterase Negative Urine RBC 0 Urine WBC 0 Ur Epithelial Cells 3-5 Urine Bacteria 0 Departure - Departure Clinical Impression: Abdominal cramps Diarrhea Qualifiers: Diarrhea type: unspecified type Qualified Code(s): R19.7 - Diarrhea, unspecified Time of Disposition: 20:41 Disposition: Discharge to Home or Self Care Condition: Fair Departure Forms: ED Discharge - Pt. Copy, Patient Portal Self Enrollment Instructions: Viral Gastroenteritis, Adult (DC), Viral Gastroenteritis Diet: other - AVOID GREASY,spicy foods and dairy products Referrals: Keith Gustafson MD [Primary Care Provider] - 1-2 Weeks Home Medications: Ambulatory Orders Acetaminophen [Tylenol Extra Strength] 500 mg PO Q6H PRN 09/05/12 Ascorbic Acid [Vitamin C] 2,000 mg PO DAILY 09/05/12 Cholecalciferol [Vitamin D3] 1,000 unit PO TID 09/05/12 Fenofibrate 160 mg PO DAILY 09/05/12 Fish Oil-Cholecalciferol [Fish Oil + D3 5496-6423 mg-Unit] 2 cap PO AM 09/05/12 Garlic [Odorless Garlic] 500 mg PO DAILY 09/05/12 Pantoprazole Tablet [Protonix] 40 mg PO DAILY 09/05/12 Furosemide [Lasix] 40 mg PO DAILY 06/02/14 Benzonatate Perles [Tessalon Perles] 200 mg PO TID PRN #20 cap 09/15/15 Tramadol HCl [Ultram] 50 mg PO Q6HRS PRN #20 tab 09/15/15 Amiodarone HCl 200 mg PO DAILY 03/22/17 Atorvastatin Calcium [Lipitor] 20 mg PO DAILY 03/22/17 Losartan Potassium 25 mg PO DAILY 03/22/17 Nebivolol HCl [Bystolic] 10 mg PO DAILY 03/22/17 Rivaroxaban [Xarelto] 20 mg PO BEDTIME 03/22/17 Spironolactone 25 mg PO DAILY 03/22/17 Benzonatate Perles [Tessalon Perles] 100 mg PO TID PRN #20 cap 03/26/17 Cefuroxime Axetil [Ceftin] 500 mg PO BID #10 tab 03/26/17 Levalbuterol Nebs [Xopenex NEBS] 1.25 mg INH Q4HR PRN #30 vial 03/26/17 guaiFENesin ER TAB [Mucinex Tab] 1,200 mg PO BID tab 03/26/17 Additional Instructions: BRAT DIET-banana,rice,applesauce,iced tea,yolanda [place], crackers,saltines ,jello for the next 24 hours then to advance diet as tolerated;wash hands thoroughly after each bowel movement.Follow up with primary Md 25 December 2017 as needed
[2017-12-22 19:28] VITALS: O2SAT 99
[2017-12-22 20:23] VITALS: BP 141/74
--- NOTE | 2017-12-22 20:36 | CT ---
CT ABDOMEN PELVIS WITHOUT IV CONTRAST Exam date: 12/22/2017 7:42 PM CDT Comparison: CT abdomen pelvis September 04, 2012 Indication: Diarrhea, abdominal pain Technique: Multiple helical axial images were obtained through the abdomen and pelvis without intravenous contrast. Sagittal and coronal reformatted images are reviewed as well. All CT scans at this facility use dose modulation, iterative reconstruction, and/or weight-based dosing when appropriate to reduce radiation dose to as low as reasonably achievable. Findings: Lung bases: Cardiac pacing leads noted. Liver: Homogenous attenuation is demonstrated. Gallbladder/biliary: Cholecystectomy changes noted. No evidence of biliary ductal dilatation. Pancreas: Unremarkable. Spleen: Unremarkable. Adrenals: Unremarkable. Kidneys and ureters: There are a few cysts in the right kidney measuring up to 1.3 cm. No evidence of renal or ureteral stones. No hydronephrosis. Bladder: Unremarkable. Pelvic organs: Post hysterectomy changes noted. Bowel: Colonic diverticula are present. No evidence of bowel obstruction. No bowel wall thickening. Appendix is not well seen. Peritoneum: No free air. No significant free fluid. Lymph nodes: Unremarkable. Vasculature: Aortic atherosclerosis is present. Soft tissues: Unremarkable. Bones: Degenerative changes of the lumbar spine noted. Impression: No obvious acute process within the abdomen or pelvis. Electronically signed by: Noble Kingston MD 12/22/2017 8:35 PM CDT
[2017-12-22 21:12] VITALS: TEMP 99.1
== END 2017-12-22 21:12 | disposition home or self-care (01) ==
LOC: ER 17:56
DX: R19.7 Diarrhea, unspecified (principal); R10.9 Unspecified abdominal pain; I10 Essential (primary) hypertension; Z95.0 Presence of cardiac pacemaker; Z90.49 Acquired absence of other specified parts of digestive tract; Z79.899 Other long term (current) drug therapy; Z88.8 Allergy status to other drugs, medicaments and biological substances
CPT/HCPCS: 74176; 80048; 80076; 81001; 82550; 82553; 83880; 84484; 85025; 85610; 85730; 87324; 87449; J7030

== ENCOUNTER 2018-06-11 10:38 | Inpatient (IN) | payer MEDICARE, OTHER ==
[2018-06-11] MEDS ORDERED: SODIUM CHLORIDE 0.9% (FLUSH) 10 ML SYG IV PRN ×2 (11:05→14:20)
[2018-06-11] MEDS ORDERED: ONDANSETRON INJ 4 MG/2 ML VIAL IV ONE (11:05)
[2018-06-11] MEDS ORDERED: SODIUM CHLORIDE 0.9% 1000ML 1,000 ML IVS ONE (11:05)
--- NOTE | 2018-06-11 11:10 | ED.PDOC ---
History of Present Illness - General Chief Complaint: General Stated Complaint: n/v/d/fever Time Seen by Provider: 06/11/18 11:05 Source: patient Exam Limitations: no limitations - History of Present Illness Initial Comments: PT PRESENTS TO THE ED WITH COMPLAINT OF FEVER, NAUSEA, VOMITING AND DIARRHEA X 6 DAYS. PT DENIES ABDOMINAL PAIN, COUGH, SOB, CHEST PAIN. Severity: moderate Improving Factors: nothing Worsening Factors: nothing Associated Symptoms: denies symptoms Allergies/Adverse Reactions: Allergies Enoxaparin [From Lovenox] Allergy (Verified 12/22/17 18:09) Hives Steroids Allergy (Severe, Uncoded 12/22/17 18:09) Anaphylaxis Pt states that after administration of any steroids her mouth swells and she can not speak Home Medications: Ambulatory Orders Acetaminophen [Tylenol Extra Strength] 500 mg PO Q6H PRN 09/05/12 Ascorbic Acid [Vitamin C] 2,000 mg PO DAILY 09/05/12 Cholecalciferol [Vitamin D3] 1,000 unit PO TID 09/05/12 Fenofibrate 160 mg PO DAILY 09/05/12 Fish Oil-Cholecalciferol [Fish Oil + D3 3456-8642 mg-Unit] 2 cap PO AM 09/05/12 Garlic [Odorless Garlic] 500 mg PO DAILY 09/05/12 Pantoprazole Tablet [Protonix] 40 mg PO DAILY 09/05/12 Furosemide [Lasix] 40 mg PO DAILY 06/02/14 Atorvastatin Calcium [Lipitor] 20 mg PO DAILY 03/22/17 Losartan Potassium 25 mg PO DAILY 03/22/17 Nebivolol HCl [Bystolic] 10 mg PO DAILY 03/22/17 Rivaroxaban [Xarelto] 20 mg PO BEDTIME 03/22/17 Spironolactone 25 mg PO DAILY 03/22/17 Review of Systems - Review of Systems Constitutional: States: chills, fever, malaise, weakness EENTM: Denies: nose congestion, throat pain Respiratory: Denies: cough, short of breath Cardiology: Denies: chest pain, palpitations Gastrointestinal/Abdominal: States: diarrhea, nausea, vomiting. Denies: abdominal pain Genitourinary: Denies: dysuria, frequency Musculoskeletal: Denies: joint pain, joint swelling Skin: Denies: lesions, rash Neurological: Denies: numbness, paresthesia Endocrine: States: no symptoms reported Past Medical History (General) - Patient Medical History Hx Seizures: No Hx Stroke: No Hx Dementia: No Hx Asthma: No Hx of COPD: No Hx Cardiac Disorders: Yes - sick sinus syndrome Hx Congestive Heart Failure: Yes Hx Pacemaker: Yes Hx Hypertension: Yes Hx Thyroid Disease: No Hx Diabetes: No Hx Gastroesophageal Reflux: No Hx Renal Disease: No Hx Cancer: No Hx of HIV: No Hx Hepatitis C: No Hx MRSA: No Surgical History: cholecystectomy, Hysterectomy - Vaccination History Hx Tetanus, Diphtheria Vaccination: Yes Hx Influenza Vaccination: Yes Hx Pneumococcal Vaccination: Yes Immunizations Up to Date: Yes - Social History Hx Tobacco Use: No Hx Chewing Tobacco Use: No Hx Alcohol Use: No Hx Substance Use: No Hx Substance Use Treatment: No Hx Depression: No Hx Physical Abuse: No Hx Emotional Abuse: No Hx Suspected Abuse: No - Female History Patient is a Female of Child Bearing Age (10 -59 yrs old): No Patient : No Family Medical History - Family History Brother Living Status: Hx Cardiac Disease: Yes - brother/sister Hx Family Cancer: - natividad mitchell Hx Family;Other: DEMENTIA-mom Grandparents Living Status: Hx Family Cancer: Yes Mother Living Status: Hx Family Asthma: No Hx Family Congestive Heart Failure: No Hx Family Hypertension: No Hx Family Stroke: No Hx Cardiac Disease: No Hx Family Diabetes: No Hx Family Cancer: No Hx Family;Other: Dementia Physical Exam - Physical Exam General Appearance: Alert, Ill Appearing, Well Developed, Well Groomed Eye Exam: bilateral normal Ears, Nose, Throat: hearing grossly normal, normal ENT inspection Neck: full range of motion, supple Respiratory: lungs clear, normal breath sounds, no respiratory distress Cardiovascular/Chest: regular rate, rhythm, no murmur Gastrointestinal/Abdominal: non tender, soft Extremity: normal inspection Neurologic: alert, normal mood/affect, oriented x 3 Skin Exam: warm/dry, pallor Progress - Progress Progress: 06/11/18 13:00 PT REPORTS SOME IMPROVEMENT, HOWEVER CONTINUES TO COMPLAIN OF MALAISE. LABS AND DIAGNOSTICS DISCUSSED. WILL PLAN TO ADMIT FOR ADDITIONAL IV ABX AND IV HYDRATION. - Results/Orders Results/Orders: Laboratory Tests 06/11/18 06/11/18 06/11/18 11:20 11:20 12:20 WBC 9.3 RBC 3.56 L Hgb 11.5 L Hct 34.9 L MCV 97.9 MCH 32.4 H MCHC 33.0 RDW 13.6 Plt Count 253 MPV 8.7 Absolute Neuts (auto) 8.80 H Absolute Lymphs (auto) 0.40 L Absolute Monos (auto) 0.10 L Absolute Eos (auto) 0.00 Absolute Basos (auto) 0.00 Neutrophils % 94.3 H Lymphocytes % 4.0 L Monocytes % 1.4 L Eosinophils % 0.1 L Basophils % 0.2 Sodium 138 Potassium 4.2 Chloride 106 Carbon Dioxide 21 Anion Gap 15.2 BUN 30 H Creatinine 1.55 H BUN/Creatinine Ratio 19.4 Random Glucose 139 H Serum Osmolality 284.1 Calcium 9.1 Total Bilirubin 1.0 Direct Bilirubin 0.3 H Indirect Bilirubin 0.7 AST 39 ALT 33 Alkaline Phosphatase 55 Serum Total Protein 7.2 Albumin 3.8 Urine Color Yellow Urine Appearance Cloudy Urine pH 6.0 Ur Specific [place] 1.020 Urine Protein 100 H Urine Glucose (UA) Negative Urine Ketones Negative Urine Blood Moderate H Urine Nitrite Positive H Urine Bilirubin Negative Urine Urobilinogen 0.2 Ur Leukocyte Esterase Small H Urine RBC >50 H Urine WBC 30-40 H Ur Epithelial Cells 0 Urine Bacteria 3+ H - EKG/XRAY/CT EKG: Atrial - VENTRICULAR SEQUENTIAL PACED RHYTHM @70BPM, MS 80, QRS 122, QTC 419, Unchanged from - 12/30/15 Departure - Departure Clinical Impression: Gastroenteritis, Pneumonia, Dehydration, Acute kidney failure Time of Disposition: 13:03 Disposition: Admit Patient Condition: Fair Departure Forms: ED Discharge - Pt. Copy, Patient Portal Self Enrollment Referrals: Keith Gustafson MD [Primary Care Provider] - 1-2 Weeks Home Medications: Ambulatory Orders Acetaminophen [Tylenol Extra Strength] 500 mg PO Q6H PRN 09/05/12 Ascorbic Acid [Vitamin C] 2,000 mg PO DAILY 09/05/12 Cholecalciferol [Vitamin D3] 1,000 unit PO TID 09/05/12 Fenofibrate 160 mg PO DAILY 09/05/12 Fish Oil-Cholecalciferol [Fish Oil + D3 8616-2512 mg-Unit] 2 cap PO AM 09/05/12 Garlic [Odorless Garlic] 500 mg PO DAILY 09/05/12 Pantoprazole Tablet [Protonix] 40 mg PO DAILY 09/05/12 Furosemide [Lasix] 40 mg PO DAILY 06/02/14 Atorvastatin Calcium [Lipitor] 20 mg PO DAILY 03/22/17 Losartan Potassium 25 mg PO DAILY 03/22/17 Nebivolol HCl [Bystolic] 10 mg PO DAILY 03/22/17 Rivaroxaban [Xarelto] 20 mg PO BEDTIME 03/22/17 Spironolactone 25 mg PO DAILY 03/22/17 Decision To Admit - Decistion To Admit Decision to Admit Reason: Admit from ER Decision to Admit Date: 06/11/18 Decision to Admit Time: 13:04 - CASE DISCUSSED WITH EVY SUNG NP WHO AGREES TO ADMIT
[2018-06-11] MEDS ORDERED: ACETAMINOPHEN 500 MG TAB ONE (11:51)
[2018-06-11] MEDS ORDERED: ACETAMINOPHEN 500 MG TAB PO ONE (11:53)
--- NOTE | 2018-06-11 12:01 | RAD ---
EXAM DESCRIPTION: Chest,1 View CLINICAL HISTORY: 73 years Female, LOW SPO2 COMPARISON: March 26, 2017. TECHNIQUE: AP radiograph of the chest was obtained. FINDINGS: The trachea appears midline. Persistent cardiomegaly is again noted which appears stable from prior exam. Prominence of the pulmonary vasculature noted likely represents underlying vascular congestion. Persistent right lower lobe airspace opacification could represent atelectasis, however underlying pneumonia cannot be excluded. No pleural effusions. Left-sided pacemaker with stable position of the ventricular leads. IMPRESSION: 1. Persistent cardiomegaly with prominent pulmonary vasculature concerning for underlying failure. 2. Slight interval worsening of the right lower lobe airspace opacification could represent atelectasis, however underlying pneumonia cannot be completely excluded. No pleural effusions. Electronically signed by: Jone Horton MD 06/11/2018 11:58 AM FLEXO OPERATOR
[2018-06-11] MEDS ORDERED: cefTRIAXone SODIUM 1 GM in SODIUM CHL 0.9% 50ML MIN-BAG+ 50 ML IVPB ONE (12:57)
[2018-06-11] MEDS ORDERED: AZITHROMYCIN IV 500 MG in SODIUM CHLORIDE 0.9% 250ML 250 ML IVPB ONE (12:57)
[2018-06-11] MEDS ORDERED: SODIUM CHL 0.9% 50ML MIN-BAG+ 50 ML IVPB ONE (13:12)
[2018-06-11] MEDS ORDERED: cefTRIAXone SODIUM 1 GM VIAL ONE (13:12)
--- NOTE | 2018-06-11 13:19 | HP ---
SUPERVISING PHYSICIAN: Ilya Clemons M.D. CHIEF COMPLAINT: Fever, chills, nausea and vomiting. HISTORY OF PRESENT ILLNESS: Ms. Mcdonald is a 73 year-old female patient that presented to the Emergency Room today with complaints of fever, nausea, vomiting, diarrhea reported over 6 days. She has not had any abdominal pains, cough, shortness of breath, chest pains. She was seen in Dr. Gustafson's office, her primary care provider, yesterday after she sustained a fall from a syncopal episode. She reports that she was going from her house to her garage where her laundry is and was going down the steps, did not feel right and woke up on the floor shortly after. Her vital signs on admission initially showed she was febrile, temperature 102.4, blood pressure 159/49, respirations 20, satting 91% on room air. Her Influenza A and B swab by PCR was negative. Chest x-ray showed that she had concerning findings for right lower lobe airspace opacification which could represent atelectasis versus underlying pneumonia. There was also note on the chest that she had persistent cardiomegaly with pulmonary vasculature concerning for underlying failure. Review of her last echocardiogram showed that it was done in 2014. She had an estimated ejection fraction of 40%. She does have a pacemaker ICD in place. She is unsure if her ICD has actually gone off. She denied any chest pains. Given the findings on x-ray concerning for developing pneumonia with a temperature of 102 but negative Influenza, the patient is now going to be admitted for developing right sided pneumonia with her previous syncopal episode. Her urinalysis also showed that she had a significant urinary tract infection with positive nitrites on dipstick with microscopic showing greater than 50 RBCs, 30 to 40 WBCs, 4+ bacteria but no epithelials. Blood cultures, urine cultures as well as Group A Strep culture was completed. She was started on antibiotics including azithromycin and Rocephin. She is now going to be admitted to the Medical/Surgical floor. She is in stable condition at time of admission. PAST MEDICAL HISTORY: 1. Coronary artery disease with previous stent after angioplasty. 2. Hypertension. 3. Hyperlipidemia. 4. History of sick sinus syndrome requiring pacemaker insertion in 2001. 5. Previous Strep pharyngitis. PAST SURGICAL HISTORY: 1. Hysterectomy. 2. Appendectomy. 3. Cholecystectomy. 4. Left arm fracture. 5. Two coronary stents after angioplasty. CURRENT MEDICATIONS: 1. Atorvastatin 20 mg at bedtime. 2. Vitamin D3 1,000 mg daily. 3. Spironolactone 25 mg daily. 4. Xarelto 20 mg at bedtime. 5. Protonix 40 mg daily. 6. Bystolic 10 mg daily. 7. Losartan potassium 25 mg daily. 8. Odorless garlic 500 mg daily. 9. Lasix 40 mg daily. 10. Fish oil supplement 2 capsules daily. 11. Fenofibrate 160 mg daily. 12. Vitamin C 2,000 mg daily. 13. Tylenol extra strength 500 mg every 6 hours as needed. ALLERGIES: ENOXAPARIN AND STEROIDS. STEROIDS CAUSE SWELLING OF THE AIRWAY. FAMILY HISTORY: Positive for heart valves in her brother. Diabetes mellitus as well. 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 She has never smoked. She denies any alcohol or illicit drug use. PRIMARY CARE PHYSICIAN: Dr. Gustafson. SCIENCE LIAISON: Dr. Fontana. REVIEW OF SYSTEMS: CONSTITUTIONAL: Positive for chills, fevers, malaise, generalized weakness with syncopal episode. HEENT: Denies any sore throat, nasal congestion, ear aches. RESPIRATORY: Denies any cough, increasing shortness of breath. CARDIOVASCULAR: Positive for syncopal episode as noted above. Negative for chest pains, palpitations. GASTROINTESTINAL: Positive for nausea, vomiting and diarrhea. Negative for any abdominal pain. GENITOURINARY: Denies any dysuria, increased frequency, polyuria or hematuria. MUSCULOSKELETAL: Denies any joint pain, swelling. SKIN: No reported lesions, rashes or moles. NEUROLOGIC: Denies any numbness, paresthesias, seizure activity, ataxia. PHYSICAL EXAMINATION: LABORATORY: White count shows 9,300, hemoglobin 11.5, hematocrit 34.9, platelet count 253,000. Differential does show a left shift. Chemistries show normal electrolytes with potassium 4.3, BUN 30, creatinine 1.55. Blood sugar 139, calcium 9.1. Bilirubin 1.0. Other liver functions were within normal limits. Urinalysis showed 100 protein, moderate amount of blood, nitrites were positive, small amount of leukocyte esterase. Microscopic showed greater than 50 RBCs, 30 to 40 WBCs with 0 epithelials, 3+ bacteria. Strep screen Rapid A was negative. MICROBIOLOGY: Group A Streptococcus culture is pending. Urine culture is pending. Blood culture is pending. Influenza by PCR was negative for both A and B. RADIOLOGY: Chest x-ray per radiology interpretation showed persistent cardiomegaly with prominent pulmonary vasculature concerning for underlying failure with slight interval worsening of the right lower lobe airspace opacification which could represent atelectasis, however underlying pneumonia cannot be completely excluded with continued followup. ASSESSMENT: 1. Febrile illness with negative Influenza testing but positive developing right middle lobe pneumonia community acquired and UTI 2. Chronic obstructive pulmonary disease with acute exacerbation secondary to community acquired pneumonia. 3. Urinary tract infection cultures pending 4. Persistent cardiomegaly with last echocardiogram in 2014 showing an ejection fraction of 40%, etiology uncertain with no current signs of exacerbation. 5. Hypertension. 6. Hyperlipidemia. 7. History of sick sinus syndrome with a pacemaker insertion in 2001. 8. Renal insufficiency, likely prerenal azotemia. PLAN: The patient is going to be admitted to the Medical/Surgical floor for treatment of underlying right lower lobe pneumonia. She was started on q.i.d. DuoNeb treatments as well as aggressive pulmonary hygiene. She is going to be on antibiotics to include Rocephin and azithromycin. Will anticipate her length of stay to be 2 to 3 days. Await Urine culture results to target antibiotic therapy according to results. Will repeat chest x-ray in the morning as well as CBC and CMP. Until the patient can transition to outpatient management, will continue to monitor and treat as needed. [facility][id number] [facility]
[2018-06-11] MEDS ORDERED: AZITHROMYCIN IV 500 MG VIAL IVPB ONE (13:30)
[2018-06-11] MEDS ORDERED: SODIUM CHLORIDE 0.9% 250ML 250 ML ONE (13:30)
[2018-06-11] MEDS ORDERED: ALBUTEROL SULFATE 2.5 MG/3 ML VIAL NEB PRN (14:20)
[2018-06-11] MEDS: cefTRIAXone SODIUM 1 GM in SODIUM CHL 0.9% 50ML MIN-BAG+ 50 ML IVPB SCH (15:19)
[2018-06-11] MEDS: IV SET AND CAP CHANGE INJ INJ SCH (15:20)
[2018-06-11] MEDS: IPRATROPIUM/ALBUTEROL 3 ML VIAL INH SCH ×2 (16:20→19:34)
[2018-06-11] MEDS: KCL 20MEQ/D5 1/2NS 1,000 ML IVS PRN (16:21)
[2018-06-11] MEDS: ACETAMINOPHEN 325 MG TAB PO PRN (19:19)
[2018-06-11] MEDS: RIVAROXABAN 10 MG TAB PO SCH (20:35)
[2018-06-11] MEDS: ATORVASTATIN 20 MG TAB PO SCH (20:35)
[2018-06-12] MEDS: KCL 20MEQ/D5 1/2NS 1,000 ML IVS PRN (04:02)
[2018-06-12] MEDS: ACETAMINOPHEN 325 MG TAB PO PRN ×2 (05:56→20:55)
[2018-06-12] MEDS ORDERED: SODIUM CHLORIDE 0.9% 250ML 250 ML ONE (07:20)
[2018-06-12] MEDS ORDERED: SODIUM CHL 0.9% 50ML MIN-BAG+ 50 ML IVPB ONE (07:20)
[2018-06-12] MEDS ORDERED: AZITHROMYCIN IV 500 MG VIAL IVPB ONE (07:21)
[2018-06-12] MEDS ORDERED: cefTRIAXone SODIUM 1 GM VIAL ONE (07:21)
--- NOTE | 2018-06-12 07:26 | RAD ---
CHEST 06/12/2018 CLINICAL HISTORY: Pneumonia. COMPARISON: 06/11/2018 TECHNIQUE: [AP] Chest. FINDINGS: Heart is normal in size. Minimal aortic arteriosclerosis. Normal pulmonary vascularity. Lungs and pleural spaces are clear. Triple lead AICD within the left chest wall is stable. IMPRESSION: 1. No acute chest disease. Electronically signed by: Macy Nieves DO 06/12/2018 7:23 AM [employer]E [employer] CHUTE OPERATOR
[2018-06-12] MEDS: cefTRIAXone SODIUM 1 GM in SODIUM CHL 0.9% 50ML MIN-BAG+ 50 ML IVPB SCH (08:39)
[2018-06-12] MEDS: LOSARTAN POTASSIUM 25 MG TAB PO SCH (08:40)
[2018-06-12] MEDS: ASCORBIC ACID 500 MG TAB PO SCH (08:40)
[2018-06-12] MEDS: NEBIVOLOL 2.5 MG TAB PO SCH (08:40)
[2018-06-12] MEDS: SPIRONOLACTONE 25 MG TAB PO SCH (08:40)
[2018-06-12] MEDS: IPRATROPIUM/ALBUTEROL 3 ML VIAL INH SCH ×4 (08:45→20:00)
[2018-06-12] MEDS: AZITHROMYCIN IV 500 MG in SODIUM CHLORIDE 0.9% 250ML 250 ML IVPB SCH (09:36)
[2018-06-12] MEDS ORDERED: GABAPENTIN 100 MG CAP PO ONE (11:58)
--- NOTE | 2018-06-12 13:11 | PN ---
SUPERVISING PHYSICIAN: Ilya Clemons MD DATE: 06/12/18 SUBJECTIVE: The patient is sitting up in bed. She states she feels better today and is less short of breath although she still has some shortness of breath with exertion. She denies chest pain, but she continues complaints of that right hip and leg pain. It is along the outside of her right femur. She has a history of some lower back pain from a trauma many years ago. She fell a couple of days ago at home. She was not quite sure how she fell, but she was quite concerned that this pain in her right leg was continuing to bother her. I assured her we would do some x-rays today. OBJECTIVE: VITAL SIGNS: Temperature 97.9. Heart rate 88. Blood pressure 127/65. Respiratory rate 20. O2 saturation 95% on room air. RESPIRATORY: Diminished breath sounds throughout with a few scattered rhonchi. No wheezing. CARDIAC: Regular rate and rhythm. GASTROINTESTINAL: Abdomen is soft, nondistended, nontender. Bowel sounds are positive. EXTREMITIES: Her lateral thigh has no ecchymosis, erythema or edema. It is very mildly tender to palpation from her knee up to her hip area. There is no ecchymosis to her posterior hip or flank area. She has +1 edema to the right lower extremity and no edema to the left lower extremity. Bilateral pedal pulses are +2 NEUROLOGIC: Awake, alert and oriented times three. LABORATORY: WBCs 12,800, hemoglobin 10.6, hematocrit 32.9. Electrolytes are basically within normal limits with creatinine slightly improved to 1.46. Preliminary blood cultures are negative to date. Urine culture is pending. Throat culture is pending. C. difficile is negative for toxin and antigen. Stool for occult blood is positive. She states she does have hemorrhoids. Chest x-ray shows no acute chest disease. All other labs and films have been reviewed via the EMR. ASSESSMENT: 1. Febrile illness with negative Influenza testing but positive developing right middle lobe pneumonia community acquired and urinary tract infection. 2. Chronic obstructive pulmonary disease with acute exacerbation secondary to community acquired pneumonia. 3. Urinary tract infection cultures pending. 4. Persistent cardiomegaly with last echocardiogram in 2014 showing an ejection fraction of 40%, etiology uncertain with no current signs of exacerbation. 5. Hypertension. 6. Hyperlipidemia. 7. History of sick sinus syndrome with a pacemaker insertion in 2001. 8. Chronic renal insufficiency with her baseline creatinine about 1.4. PLAN: We will continue present supportive care including DuoNeb treatments as well as aggressive pulmonary hygiene, Rocephin and azithromycin. We will continue to monitor her cultures as they become available and target antibiotic therapy according to those results. I have repeated her flu swab as I see no results on her chart. I will repeat her labs in the morning. I have discontinued her IV fluids. I have x-rayed her lumbar spine, her right hip and her right femur. I have also given her some Neurontin tonight at bedtime due to her neuropathies from her her lumbar spine issues. Stool studies have been ordered and we are still awaiting culture and stool for WBCs. The other two stool studies have been completed. Hopefully she can be discharged in the next one to two days. We will need to monitor the urine cultures closely. We will continue to monitor the patient closely and treat as appropriate. #[id number] [facility]
--- NOTE | 2018-06-12 14:44 | RAD ---
EXAM DESCRIPTION: Femur,Right CLINICAL HISTORY: right hip/leg pain COMPARISON: None FINDINGS: 4 views of the right femur. No fracture, dislocation or aggressive bone lesion is present. Bone mineralization is normal. No erosions are seen. No gross soft tissue abnormality. No advanced osteoarthritis of the visualized right hip and knee joint. IMPRESSION: Negative Electronically signed by: Oliver Tay MD 06/12/2018 2:41 PM [facility]
--- NOTE | 2018-06-12 14:45 | RAD ---
EXAM DESCRIPTION: Hip,Right 2 Views CLINICAL HISTORY: right hip/leg pain COMPARISON: None Available. TECHNIQUE: AP/frog leg lateral FINDINGS: Two views of the right hip demonstrate moderate hypertrophic degenerative lipping at the acetabular margin with preserved joint space. The femoral head remains smooth and round and no fracture or dislocation seen. IMPRESSION: Moderately degenerative acetabulum without severe joint space narrowing fracture or dislocation. Electronically signed by: Fede Weiner MD 06/12/2018 2:42 PM [facility]
--- NOTE | 2018-06-12 14:47 | RAD ---
EXAM DESCRIPTION: Lumbar Spine 3 Views CLINICAL HISTORY: right hip/leg pain COMPARISON: None Available. TECHNIQUE: Three views lumbar spine FINDINGS: Sclerotic bony changes particularly involving the facet joints with multilevel disc degeneration and narrowing with endplate sclerosis is present. There is relative sparing of the L2-3 and L3-4 disc spaces. The SI joints are unremarkable. On the spot lateral view severe sclerosis of the lower three sets of facet joints is present with significant disc space narrowing at L5-S1 and endplate sclerosis and early degenerative spondylolisthesis of L4 on L5 estimated at three or 4 mm. Normal alignment at L3-4 is noted. IMPRESSION: Multilevel degenerative disc disease and advanced lower lumbar facet sclerosis and hypertrophy with early grade 1 degenerative spondylolisthesis L3-4. Electronically signed by: Fede Weiner MD 06/12/2018 2:43 PM [facility]
[2018-06-12] MEDS: GABAPENTIN 300 MG CAP PO SCH (20:54)
[2018-06-12] MEDS: ATORVASTATIN 20 MG TAB PO SCH (20:55)
[2018-06-12] MEDS: RIVAROXABAN 10 MG TAB PO SCH (20:55)
[2018-06-12] MEDS: ONDANSETRON INJ 4 MG/2 ML VIAL IV PRN (21:01)
[2018-06-13] MEDS ORDERED: SODIUM CHLORIDE 0.45% 1000ML 1,000 ML IVS ONE (08:34)
[2018-06-13] MEDS: IPRATROPIUM/ALBUTEROL 3 ML VIAL INH SCH ×5 (08:46→22:01)
[2018-06-13] MEDS ORDERED: SODIUM CHLORIDE 0.9% 250ML 250 ML ONE (09:10)
[2018-06-13] MEDS ORDERED: SODIUM CHL 0.9% 50ML MIN-BAG+ 50 ML IVPB ONE (09:10)
[2018-06-13] MEDS ORDERED: cefTRIAXone SODIUM 1 GM VIAL ONE (09:11)
[2018-06-13] MEDS ORDERED: AZITHROMYCIN IV 500 MG VIAL IVPB ONE (09:12)
[2018-06-13] MEDS: NEBIVOLOL 2.5 MG TAB PO SCH (09:50)
[2018-06-13] MEDS: cefTRIAXone SODIUM 1 GM in SODIUM CHL 0.9% 50ML MIN-BAG+ 50 ML IVPB SCH (09:51)
[2018-06-13] MEDS: LOSARTAN POTASSIUM 25 MG TAB PO SCH (09:51)
[2018-06-13] MEDS: SPIRONOLACTONE 25 MG TAB PO SCH (09:51)
[2018-06-13] MEDS: ASCORBIC ACID 500 MG TAB PO SCH (09:51)
[2018-06-13] MEDS: AZITHROMYCIN IV 500 MG in SODIUM CHLORIDE 0.9% 250ML 250 ML IVPB SCH (10:15)
[2018-06-13] MEDS: FUROSEMIDE 40 MG TAB PO SCH (12:07)
[2018-06-13] MEDS: ONDANSETRON INJ 4 MG/2 ML VIAL IV PRN (12:12)
[2018-06-13] MEDS: guaiFENesin ER TAB 600 MG TAB PO SCH ×2 (13:10→20:18)
--- NOTE | 2018-06-13 14:36 | CT ---
EXAM DESCRIPTION: Abdomen/Pelvis w/wo Contrast CLINICAL HISTORY: abd pain COMPARISON: December 22, 2017 TECHNIQUE: Pre and postcontrast CT images of the abdomen and pelvis are obtained using standard imaging protocol. Patient breathing motion artifact mildly degrades imaging limiting detailed evaluation. This exam was performed according to our departmental dose-optimization program, which includes automated exposure control, adjustment of the mA and/or kV according to patient size and/or use of iterative reconstruction technique . FINDINGS: Visualized lung bases show cardiac pacemaker leads. Heart is mildly enlarged. The liver, spleen, pancreas, and adrenal glands are unremarkable. Surgical clips from cholecystectomy are seen. Moderate calcific atherosclerotic disease without aneurysmal dilatation of the aorta is seen. No nephrolithiasis or ureteral obstruction. Fluid attenuation cortical cysts on the upper pole of the right kidney measure up to 17 mm. Urinary bladder is contracted and not well evaluated. Surgical absence of uterus is noted. The ovaries are not seen. The appendix is not identified. No secondary signs of acute appendicitis. Stomach is poorly distended and unremarkable. No small bowel obstruction or bowel wall thickening or inflammation is seen. Moderate scattered diverticuli of the colon are seen mainly in the descending to sigmoid region without associated inflammatory changes or fluid collections. No free intraperitoneal air or abnormal fluid collections. No pathologic lymphadenopathy is seen. The osseous structures show no aggressive bony lesions. Degenerative changes of the spine are seen with multilevel spinal canal stenosis most significant at L4-5. IMPRESSION: No acute findings on CT of the abdomen and pelvis. Colon diverticulosis without CT evidence of diverticulitis is again seen. Other chronic findings as described above Electronically signed by: Barry Mccabe MD 06/13/2018 2:33 PM BUILDING GUARD DEPUTY SHERIFF
[2018-06-13] MEDS ORDERED: PROMETHAZINE HCL INJ 25 MG in SODIUM CHLORIDE 0.9% 50ML 50 ML IVPB PRN (14:38)
[2018-06-13] MEDS ORDERED: PROMETHAZINE HCL INJ 25 MG/ML VIAL ONE (14:40)
[2018-06-13] MEDS ORDERED: SODIUM CHLORIDE 0.9% 100ML 100 ML IVPB ONE (14:41)
[2018-06-13] MEDS: GABAPENTIN 100 MG CAP PO SCH (15:11)
--- NOTE | 2018-06-13 17:16 | PN ---
DATE: 06/13/18 SUPERVISING PHYSICIAN: Ilya Clemons M.D. SUBJECTIVE: The patient is sitting on the side of her bed. She has been nauseated. She continues complaints of abdominal pain that started prior to admission but had somewhat diminished and came back yesterday to the point that she is continuing with diarrhea and nausea. She denies chest pain or shortness of breath. OBJECTIVE: VITAL SIGNS: She has a temperature of 98, but her T max 24 hours is 100.5. Heart rate 69, blood pressure 110/62, respiratory rate 18, O2 sat 96% on room air. RESPIRATORY: Essentially clear to auscultation bilaterally but somewhat diminished at the bases. CARDIAC: Regular rate and rhythm. GASTROINTESTINAL: Abdomen is soft. It is diffusely tender. No rebound tenderness or guarding. Bowel sounds are positive. NEUROLOGIC: She is awake, alert and oriented times three. LABORATORY: WBCs are 12,000, hemoglobin 10.5, hematocrit 32.7. Electrolytes are basically within normal limits with the exception of her carbon dioxide is 19, BUN 23, creatinine has improved to 1.12. Stool for occult blood is positive. Fecal leukocytes show no evidence of WBCs. Clostridium Difficile is negative for both toxin and antigen. Urine culture is still pending. Preliminary blood cultures show no growth after 48 hours. Abdominal/pelvic CT shows no acute findings on CT of the abdomen and pelvis. Colon diverticulosis without CT evidence of diverticulitis is again seen. All other labs and films have been reviewed via the EMR. ASSESSMENT: 1. Febrile illness with negative Influenza testing but positive developing right middle lobe pneumonia community acquired and urinary tract infection. 2. Chronic obstructive pulmonary disease with acute exacerbation secondary to community acquired pneumonia. 3. Urinary tract infection cultures pending. 4. Persistent cardiomegaly with last echocardiogram in 2014 showing an ejection fraction of 40%, etiology uncertain with no current signs of exacerbation. 5. Hypertension. 6. Hyperlipidemia. 7. History of sick sinus syndrome with a pacemaker insertion in 2001. 8. Chronic renal insufficiency with her baseline creatinine about 1.4. PLAN: We will continue present supportive care and await her urine cultures. I have increased her Neurontin to 100 mg in the morning and afternoon and 300 at night. I have given her some Mucinex to thin her secretions out. She has also had some Phenergan but continues to be nauseated. Will draw routine labs tomorrow. On top of her other issues, she may just have a viral gastroenteritis. We will continue to monitor closely and follow as needed. [facility][id number] [facility] [id number]
[2018-06-13] MEDS: GABAPENTIN 300 MG CAP PO SCH (20:18)
[2018-06-13] MEDS: RIVAROXABAN 10 MG TAB PO SCH (20:19)
[2018-06-13] MEDS: ATORVASTATIN 20 MG TAB PO SCH (20:19)
[2018-06-13] MEDS: ACETAMINOPHEN 325 MG TAB PO PRN (20:24)
[2018-06-14] MEDS ORDERED: SODIUM CHL 0.9% 50ML MIN-BAG+ 50 ML IVPB ONE (07:22)
[2018-06-14] MEDS ORDERED: SODIUM CHLORIDE 0.9% 250ML 250 ML ONE (07:22)
[2018-06-14] MEDS ORDERED: AZITHROMYCIN IV 500 MG VIAL IVPB ONE (07:23)
[2018-06-14] MEDS ORDERED: cefTRIAXone SODIUM 1 GM VIAL ONE (07:23)
[2018-06-14] MEDS: ASCORBIC ACID 500 MG TAB PO SCH (08:41)
[2018-06-14] MEDS: NEBIVOLOL 2.5 MG TAB PO SCH (08:42)
[2018-06-14] MEDS: SPIRONOLACTONE 25 MG TAB PO SCH (08:42)
[2018-06-14] MEDS: cefTRIAXone SODIUM 1 GM in SODIUM CHL 0.9% 50ML MIN-BAG+ 50 ML IVPB SCH (08:42)
[2018-06-14] MEDS: guaiFENesin ER TAB 600 MG TAB PO SCH ×2 (08:42→20:27)
[2018-06-14] MEDS: FENOFIBRIC ACID 135 MG CAP PO SCH (08:42)
[2018-06-14] MEDS: LOSARTAN POTASSIUM 25 MG TAB PO SCH (08:42)
[2018-06-14] MEDS: FUROSEMIDE 40 MG TAB PO SCH (08:42)
[2018-06-14] MEDS: IPRATROPIUM/ALBUTEROL 3 ML VIAL INH SCH ×4 (08:43→20:51)
[2018-06-14] MEDS: GABAPENTIN 100 MG CAP PO SCH ×2 (08:43→15:05)
[2018-06-14] MEDS: ONDANSETRON INJ 4 MG/2 ML VIAL IV PRN (09:17)
[2018-06-14] MEDS: AZITHROMYCIN IV 500 MG in SODIUM CHLORIDE 0.9% 250ML 250 ML IVPB SCH (09:20)
--- NOTE | 2018-06-14 17:41 | PN ---
DATE: 06/14/18 SUPERVISING PHYSICIAN: Ilya Clemons M.D. SUBJECTIVE: The patient is sitting up in her bed. She is doing a breathing treatment. She feels much better today than yesterday. She had a bout of nausea early this morning but since then her nausea and vomiting has subsided. She denies any shortness of breath or chest pain, but she does say she is extremely weak. She would like to start walking around. OBJECTIVE: VITAL SIGNS: Temperature 98.5, heart rate 70, blood pressure 154/66, respiratory rate 18, O2 sat 94% on room air. RESPIRATORY: Essentially clear to auscultation bilaterally. She does have a few scattered rhonchi. CARDIAC: Regular rate and rhythm. GASTROINTESTINAL: Abdomen is soft, nondistended, non- tender. Bowel sounds are positive. NEUROLOGIC: She is awake, alert and oriented times three. LABORATORY: WBC has normalized at 10,000 with hemoglobin 10, hematocrit 31. Preliminary blood cultures show no growth after 3 days. Urine culture is positive for Escherichia coli and it is pansensitive and she is on Ceftriaxone at this time. Stool culture is still pending. All other labs and films have been reviewed via the EMR. ASSESSMENT: 1. Febrile illness with negative Influenza testing but positive developing right middle lobe pneumonia community acquired and urinary tract infection. 2. Chronic obstructive pulmonary disease with acute exacerbation secondary to community acquired pneumonia. 3. Urinary tract infection cultures pending. 4. Persistent cardiomegaly with last echocardiogram in 2014 showing an ejection fraction of 40%, etiology uncertain with no current signs of exacerbation. 5. Hypertension. 6. Hyperlipidemia. 7. History of sick sinus syndrome with a pacemaker insertion in 2001. 8. Chronic renal insufficiency with her baseline creatinine about 1.4. 9. Nausea and vomiting most likely due to a viral enteritis, mostly resolved. PLAN: We will continue present supportive care. Her urine culture had been resulted and will continue on her Ceftriaxone until discharge, and then we will send her home on an additional cephalosporin. I have also ordered Physical Therapy consultation and we need to ambulate her in the hallways prior to discharge. Again, we will hold on lab. We will continue to monitor closely and follow as needed. [facility][id number] [facility]
[2018-06-14] MEDS: ATORVASTATIN 20 MG TAB PO SCH (20:27)
[2018-06-14] MEDS: GABAPENTIN 300 MG CAP PO SCH (20:27)
[2018-06-14] MEDS: RIVAROXABAN 10 MG TAB PO SCH (20:27)
--- NOTE | 2018-06-15 06:38 | RAD ---
CHEST 06/15/2018 CLINICAL HISTORY: Pneumonia COMPARISON: 06/12/2018 TECHNIQUE: [AP] Chest. FINDINGS: Heart is minimally enlarged. Mild aortic atherosclerosis. Mild pulmonary vascular congestion. No consolidation. No pleural fluid or pneumothorax. Triple lead AICD within the left chest wall is stable. IMPRESSION: 1. Hepatomegaly with pulmonary vascular congestion. No overt edema. No evidence of pneumonia as clinically questioned. Electronically signed by: Macy Nieves DO 06/15/2018 6:35 AM ONLINE PRODUCER
[2018-06-15] MEDS: IPRATROPIUM/ALBUTEROL 3 ML VIAL INH SCH ×4 (08:39→20:32)
[2018-06-15] MEDS ORDERED: SODIUM CHLORIDE 0.9% 250ML 250 ML ONE (09:01)
[2018-06-15] MEDS ORDERED: SODIUM CHL 0.9% 50ML MIN-BAG+ 50 ML IVPB ONE (09:01)
[2018-06-15] MEDS ORDERED: cefTRIAXone SODIUM 1 GM VIAL ONE (09:02)
[2018-06-15] MEDS ORDERED: AZITHROMYCIN IV 500 MG VIAL IVPB ONE (09:02)
[2018-06-15] MEDS: NEBIVOLOL 2.5 MG TAB PO SCH (09:47)
[2018-06-15] MEDS: LOSARTAN POTASSIUM 25 MG TAB PO SCH (09:47)
[2018-06-15] MEDS: GABAPENTIN 100 MG CAP PO SCH ×2 (09:47→15:37)
[2018-06-15] MEDS: FUROSEMIDE 40 MG TAB PO SCH (09:47)
[2018-06-15] MEDS: guaiFENesin ER TAB 600 MG TAB PO SCH ×2 (09:47→20:34)
[2018-06-15] MEDS: ASCORBIC ACID 500 MG TAB PO SCH (09:47)
[2018-06-15] MEDS: FENOFIBRIC ACID 135 MG CAP PO SCH (09:48)
[2018-06-15] MEDS: SPIRONOLACTONE 25 MG TAB PO SCH (09:48)
[2018-06-15] MEDS: cefTRIAXone SODIUM 1 GM in SODIUM CHL 0.9% 50ML MIN-BAG+ 50 ML IVPB SCH (09:51)
[2018-06-15] MEDS: AZITHROMYCIN IV 500 MG in SODIUM CHLORIDE 0.9% 250ML 250 ML IVPB SCH (10:34)
[2018-06-15] MEDS: RIVAROXABAN 10 MG TAB PO SCH (20:34)
[2018-06-15] MEDS: ATORVASTATIN 20 MG TAB PO SCH (20:34)
[2018-06-15] MEDS: GABAPENTIN 300 MG CAP PO SCH (20:34)
[2018-06-15] MEDS: IV SET AND CAP CHANGE INJ INJ SCH (20:34)
[2018-06-16] MEDS: ONDANSETRON INJ 4 MG/2 ML VIAL IV PRN (07:47)
[2018-06-16] MEDS ORDERED: SODIUM CHL 0.9% 50ML MIN-BAG+ 50 ML IVPB ONE (08:21)
[2018-06-16] MEDS ORDERED: cefTRIAXone SODIUM 1 GM VIAL ONE (08:22)
[2018-06-16] MEDS: NEBIVOLOL 2.5 MG TAB PO SCH (08:35)
[2018-06-16] MEDS: LOSARTAN POTASSIUM 25 MG TAB PO SCH (08:36)
[2018-06-16] MEDS: ASCORBIC ACID 500 MG TAB PO SCH (08:36)
[2018-06-16] MEDS: GABAPENTIN 100 MG CAP PO SCH ×2 (08:36→14:31)
[2018-06-16] MEDS: SPIRONOLACTONE 25 MG TAB PO SCH (08:36)
[2018-06-16] MEDS: FUROSEMIDE 40 MG TAB PO SCH (08:36)
[2018-06-16] MEDS: FENOFIBRIC ACID 135 MG CAP PO SCH (08:36)
[2018-06-16] MEDS: guaiFENesin ER TAB 600 MG TAB PO SCH ×2 (08:36→20:47)
[2018-06-16] MEDS: cefTRIAXone SODIUM 1 GM in SODIUM CHL 0.9% 50ML MIN-BAG+ 50 ML IVPB SCH (08:36)
[2018-06-16] MEDS: IPRATROPIUM/ALBUTEROL 3 ML VIAL INH SCH (08:49)
[2018-06-16] MEDS ORDERED: LEVALBUTEROL NEBS 1.25 MG/3 ML VIAL NEB PRN (08:57)
[2018-06-16] MEDS ORDERED: AZITHROMYCIN IV 500 MG VIAL IVPB ONE (09:01)
[2018-06-16] MEDS ORDERED: SODIUM CHLORIDE 0.9% 250ML 250 ML ONE (09:01)
[2018-06-16] MEDS: ACETAMINOPHEN 325 MG TAB PO PRN ×2 (09:05→15:45)
[2018-06-16] MEDS: AZITHROMYCIN IV 500 MG in SODIUM CHLORIDE 0.9% 250ML 250 ML IVPB SCH (10:30)
--- NOTE | 2018-06-16 12:52 | PN ---
DATE: 06/15/18 SUPERVISING PHYSICIAN: Ilya Clemons M.D. SUBJECTIVE: The patient is sitting up on the side of her bed eating a meal. She feels much improved but continues to feel weakness. She would like to get up walking around and I have encouraged her to do so with assistance. If she does well this afternoon and has no nausea, will send her home today. Otherwise will need to make sure she is safe to leave the hospital. I have encouraged her to let us know how she is feeling. Otherwise she has no complaints of shortness of breath, chest pain, nausea or vomiting. OBJECTIVE: VITAL SIGNS: Temperature 98.6, heart rate 70, blood pressure 128/77, respiratory rate 20, O2 sat 96% on room air. RESPIRATORY: Essentially clear to auscultation bilaterally. CARDIAC: Regular rate and rhythm. GASTROINTESTINAL: Abdomen is soft, nondistended, non-tender. Bowel sounds are positive. NEUROLOGIC: She is awake, alert and oriented times three. LABORATORY: CMP is basically within normal limits. Preliminary blood cultures show no growth after 3 days. Sputum culture is pending. Chest x-ray shows hepatomegaly with pulmonary vascular congestion. No overt edema. No evidence of pneumonia is clinically questioned. All other labs and films have been reviewed via the EMR. ASSESSMENT: 1. Febrile illness with negative Influenza testing but positive developing right middle lobe pneumonia community acquired and urinary tract infection. 2. Chronic obstructive pulmonary disease with acute exacerbation secondary to community acquired pneumonia. 3. Urinary tract infection cultures pending. 4. Persistent cardiomegaly with last echocardiogram in 2014 showing an ejection fraction of 40%, etiology uncertain with no current signs of exacerbation. 5. Hypertension. 6. Hyperlipidemia. 7. History of sick sinus syndrome with a pacemaker insertion in 2001. 8. Chronic renal insufficiency with her baseline creatinine about 1.4. 9. Nausea and vomiting most likely due to a viral enteritis, mostly resolved. PLAN: We will continue present supportive care. She will continue on her Ceftriaxone until discharge and then will send her home on an additional cephalosporin. Not sure why she has the nausea. The CT scan of her abdomen is basically clear. She may need to be referred to a major appliance assembly supervisor. I have encouraged her to ambulate in the hallways. Depending on if she is safe to go home, we may discharge her this evening. Otherwise will discharge her in the morning. #[id number] [facility]
--- NOTE | 2018-06-16 13:27 | CT ---
PROCEDURE: CT Head Without Intravenous Contrast CLINICAL INDICATION: The patient is 73 years old and is Female; choudhury TECHNIQUE: Axial computed tomography images of the head/brain without intravenous contrast. Sagittal and coronal reformatted images were created and reviewed. This CT exam was performed using one or more of the following dose reduction techniques: automated exposure control, adjustment of the mA and/or kV according to patient size, and/or use of iterative reconstruction technique. COMPARISON: No relevant prior studies available. FINDINGS: BRAIN: Early infarcts within the first 12 hours may not be visible on noncontrast CT. The pickard/white matter differentiation is intact. NO intra-or extra-axial fluid collections are seen. No hemorrhage. MIDLINE SHIFT: There is NO midline shift. VENTRICLES: No acute abnormality identified. BONES/JOINTS: There is hyperostosis frontalis interna. No acute fracture. SOFT TISSUES: The soft tissues of the scalp are unremarkable. VASCULATURE: Intracranial vascular calcifications are noted. SINUSES: Mild mucosal thickening involving the LEFT maxillary sinus. There is moderate mucosal thickening involving the sphenoid sinuses. MASTOID AIR CELLS: Unremarkable as visualized. No mastoid effusion. ORBITS: There has been bilateral cataract surgery. IMPRESSION: No acute intracranial abnormality is identified. Paranasal sinus opacification as described. Well-preserved cerebral volume and attenuation for age. Electronically signed by: Feng Arreola MD 06/16/2018 1:23 PM [employer]
[2018-06-16] MEDS ORDERED: MECLIZINE HCL 12.5 MG TAB PO PRN (14:04)
[2018-06-16] MEDS ORDERED: AMOXICILLIN & POT CLAVULANATE 875 MG TAB PO SCH (14:30)
[2018-06-16] MEDS: IBUPROFEN 400 MG TAB PO PRN ×2 (14:32→20:48)
--- NOTE | 2018-06-16 16:26 | PN ---
DATE: 06/16/18 SUPERVISING PHYSICIAN: Ilya Clemons M.D. SUBJECTIVE: The patient complains of pain in her left jaw. She says it feels like she went to the dentist's office and it is numb. The pain goes up into the left side of her head and down into her left jaw. She denies any substernal chest pain, but the pain does go to her left shoulder. She denies any shortness of breath, nausea or vomiting. OBJECTIVE: VITAL SIGNS: Temperature 98, heart rate 70, blood pressure 155/79, respiratory rate 18, O2 sat 96% on room air. EYES: Her pupils are equal and reactive bilaterally. RESPIRATORY: Essentially clear to auscultation bilaterally. CARDIAC: Regular rate and rhythm. GASTROINTESTINAL: Abdomen is soft, nondistended, non-tender. Bowel sounds are positive. NEUROLOGIC: She is awake, alert and oriented times three. Cranial nerves II-XII are grossly intact. LABORATORY: WBCs are 8.3 with hemoglobin 9.6 and 29.9. Recent cardiac enzymes are negative. Final blood cultures show no growth after [address] shows no acute intracranial abnormality identified. Paranasal sinus opacity is described, well preserved cerebral volume an attenuation for age. The sinuses show mild mucosal thickening involving the left maxillary sinus. There is moderate mucosal thickening involving the sphenoid sinuses. All other labs and films have been reviewed via the EMR. ASSESSMENT: 1. Febrile illness with negative Influenza testing but positive developing right middle lobe pneumonia community acquired and urinary tract infection. 2. Chronic obstructive pulmonary disease with acute exacerbation secondary to community acquired pneumonia. 3. Urinary tract infection with pansensitive cultures presently on Rocephin. 4. Chronic left sided sinusitis. 5. Persistent cardiomegaly with last echocardiogram in 2014 showing an ejection fraction of 40%, etiology uncertain with no current signs of exacerbation. 6. Hypertension. 7. Hyperlipidemia. 8. History of sick sinus syndrome with a pacemaker insertion in 2001. 9. Chronic renal insufficiency with her baseline creatinine about 1.4. 10. Nausea and vomiting most likely due to a viral enteritis, mostly resolved. PLAN: We will continue present supportive care. I have discontinued her Ceftriaxone and she has completed her azithromycin dosing. I will put her on Augmentin today as well as some Align. She will go home on at least 3 weeks of Augmentin for her left sinusitis. She will need an ENT referral. I will also try some Meclizine for her dizziness. She is afraid to go home because she is so dizzy and feels she may fall. I will make sure that Physical Therapy evaluates her for safety to go home in the morning. Otherwise I will hold on labs for now. Will continue to monitor closely and follow as needed. Hopefully she can be discharged tomorrow. #[id number] MTDD
[2018-06-16] MEDS: LEVALBUTEROL NEBS 1.25 MG/3 ML VIAL NEB SCH (20:35)
[2018-06-16] MEDS: AMOXICILLIN & POT CLAVULANATE 875 MG TAB PO SCH (20:48)
[2018-06-16] MEDS: ATORVASTATIN 20 MG TAB PO SCH (20:49)
[2018-06-16] MEDS: RIVAROXABAN 10 MG TAB PO SCH (20:50)
[2018-06-16] MEDS: GABAPENTIN 300 MG CAP PO SCH (20:53)
[2018-06-17] MEDS: LEVALBUTEROL NEBS 1.25 MG/3 ML VIAL NEB SCH (07:41)
[2018-06-17] MEDS: ASCORBIC ACID 500 MG TAB PO SCH (08:09)
[2018-06-17] MEDS: guaiFENesin ER TAB 600 MG TAB PO SCH (08:09)
[2018-06-17] MEDS: FENOFIBRIC ACID 135 MG CAP PO SCH (08:09)
[2018-06-17] MEDS: AMOXICILLIN & POT CLAVULANATE 875 MG TAB PO SCH (08:10)
[2018-06-17] MEDS: GABAPENTIN 100 MG CAP PO SCH (08:10)
[2018-06-17] MEDS: NEBIVOLOL 2.5 MG TAB PO SCH (08:10)
[2018-06-17] MEDS: SPIRONOLACTONE 25 MG TAB PO SCH (08:10)
[2018-06-17] MEDS: LOSARTAN POTASSIUM 25 MG TAB PO SCH (08:10)
[2018-06-17] MEDS: FUROSEMIDE 40 MG TAB PO SCH (08:10)
[2018-06-17 09:57] VITALS: O2SAT 97
[2018-06-17 13:49] VITALS: BP 135/79; TEMP 97.9
--- NOTE | 2018-07-01 17:49 | DS ---
SUPERVISING PHYSICIAN: Fede Mcgarry M.D. ADMISSION DIAGNOSIS: 1. Febrile illness with negative Influenza testing but positive developing right middle lobe pneumonia community acquired and UTI 2. Chronic obstructive pulmonary disease with acute exacerbation secondary to community acquired pneumonia. 3. Urinary tract infection cultures pending 4. Persistent cardiomegaly with last echocardiogram in 2014 showing an ejection fraction of 40%, etiology uncertain with no current signs of exacerbation. 5. Hypertension. 6. Hyperlipidemia. 7. History of sick sinus syndrome with a pacemaker insertion in 2001. 8. Renal insufficiency, likely prerenal azotemia. DISCHARGE DIAGNOSIS: 1. Febrile illness with negative Influenza testing but positive developing right middle lobe pneumonia community acquired and urinary tract infection. 2. Chronic obstructive pulmonary disease with acute exacerbation secondary to community acquired pneumonia. 3. Urinary tract infection with pansensitive cultures presently on Rocephin. 4. Chronic left sided sinusitis. 5. Persistent cardiomegaly with last echocardiogram in 2014 showing an ejection fraction of 40%, etiology uncertain with no current signs of exacerbation. 6. Hypertension. 7. Hyperlipidemia. 8. History of sick sinus syndrome with a pacemaker insertion in 2001. 9. Chronic renal insufficiency with her baseline creatinine about 1.4. 10. Nausea and vomiting most likely due to a viral enteritis, mostly resolved. REASON FOR HOSPITALIZATION: Ms. Mcdonald is a 73 year-old female patient that presented to the Emergency Room today with complaints of fever, nausea, vomiting, diarrhea reported over 6 days. She has not had any abdominal pains, cough, shortness of breath, chest pains. She was seen in Dr. Gustafson's office, her primary care provider, yesterday after she sustained a fall from a syncopal episode. She reports that she was going from her house to her garage where her laundry is and was going down the steps, did not feel right and woke up on the floor shortly after. Her vital signs on admission initially showed she was febrile, temperature 102.4, blood pressure 159/49, respirations 20, satting 91% on room air. Her Influenza A and B swab by PCR was negative. Chest x-ray showed that she had concerning findings for right lower lobe airspace opacification which could represent atelectasis versus underlying pneumonia. There was also note on the chest that she had persistent cardiomegaly with pulmonary vasculature concerning for underlying failure. Review of her last echocardiogram showed that it was done in 2015. She had an estimated ejection fraction of 40%. She does have a pacemaker ICD in place. She is unsure if her ICD has actually gone off. She denied any chest pains. Given the findings on x-ray concerning for developing pneumonia with a temperature of 102 but negative Influenza, the patient is now going to be admitted for developing right sided pneumonia with her previous syncopal episode. Her urinalysis also showed that she had a significant urinary tract infection with positive nitrites on dipstick with microscopic showing greater than 50 RBCs, 30 to 40 WBCs, 4+ bacteria but no epithelials. Blood cultures, urine cultures as well as Group A Strep culture was completed. She was started on antibiotics including azithromycin and Rocephin. She is now going to be admitted to the Medical/Surgical floor. She is in stable condition at time of admission. LABORATORY STUDIES: White count on admission was 9.3, at discharge was 8.3. Hemoglobin and hematocrit were showing to be stable at 9.6 and 29.9 at discharge with platelet count 265,000. Differential did show an initial left shift but prior to discharge had resolved. Chemistry showed normal electrolytes both on admission and discharge. Potassium 4.9, BUN 23, creatinine 1.28 at discharge with calcium 9.3, magnesium 2.1 Liver functions showing to be within normal limits. She had 1 troponin that was 0.03. Urinalysis showed 100 protein, moderate blood, positive nitrites with small amount of leukocyte esterase, greater than 50 RBCs, 30 to 40 WBCs and 3+ bacteria. MICROBIOLOGY: Stool leukocytes were negative. Clostridium Difficile toxin A and B were negative. Group A Streptococcus culture still now growth. Blood cultures remain negative after 5 days. Influenza A and B by PCR were negative. Urine culture showed pansensitive species. Please see those reports for full details. HOSPITAL COURSE: Ms. Mcdonald was admitted on 06/11/18 as noted above for pneumonia with a urinary tract infection. She was started on antibiotic coverage with Rocephin and azithromycin and showed good clinical response to treatment, and was felt on date of discharge well enough to continue with outpatient management. PLAN: Ms. Mcdonald was discharged on 06/17/18 with instructions to followup with Dr. Gustafson in 1 to 2 weeks. She is to resume her home medications as instructed and return to the hospital should she have any concerning symptoms. Diet at discharge was regular diet as tolerated. Activity is to increase as tolerated. New prescriptions at discharge included: 1. Augmentin 875 mg twice daily, #28. 2. Mucinex tablets 600 mg twice daily. All other medications prior to hospitalization were resumed as noted below: 1. Atorvastatin 20 mg at bedtime. 2. Vitamin D3 1,000 units daily. 3. Spironolactone 25 mg daily. 4. Xarelto 20 mg at bedtime. 5. Protonix 40 mg daily. 6. Bystolic 10 mg daily. 7. Losartan 25 mg daily. 8. Garlic 500 mg daily. 9. Lasix 40 mg daily. 10. Fish oil 2 tablets daily. 11. Fenofibrate 160 mg daily. 12. Vitamin C. 13. Tylenol extra strength 500 mg every 6 hours as needed. Condition on discharge was stable and improving. DISPOSITION: The patient is discharged home to family members. #[id number] [facility]SL
== END 2018-06-17 13:56 | disposition home or self-care (01) | DRG 194 ==
LOC: ER 10:38 → MS 13:16
PROVIDERS: ADMIT Nurse Practitioner Family; ATTEND Nurse Practitioner Family
PROC: BW2110Z Computerized Tomography (CT Scan) of Abdomen and Pelvis using Low Osmolar Contrast, Unenhanced and Enhanced (ICD-10-PCS; principal; 2018-06-13)
DX: J18.1 Lobar pneumonia, unspecified organism (principal); N39.0 Urinary tract infection, site not specified; J44.1 Chronic obstructive pulmonary disease with (acute) exacerbation; J44.0 Chronic obstructive pulmonary disease with (acute) lower respiratory infection; N17.9 Acute kidney failure, unspecified; A08.4 Viral intestinal infection, unspecified; E86.0 Dehydration; J32.9 Chronic sinusitis, unspecified; M25.551 Pain in right hip; M79.604 Pain in right leg; W19.XXXA Unspecified fall, initial encounter; I12.9 Hypertensive chronic kidney disease with stage 1 through stage 4 chronic kidney disease, or unspecified chronic kidney disease; E78.5 Hyperlipidemia, unspecified; I51.7 Cardiomegaly; I25.10 Atherosclerotic heart disease of native coronary artery without angina pectoris; N18.9 Chronic kidney disease, unspecified; Z95.810 Presence of automatic (implantable) cardiac defibrillator; Z95.5 Presence of coronary angioplasty implant and graft; Z90.49 Acquired absence of other specified parts of digestive tract; Z79.02 Long term (current) use of antithrombotics/antiplatelets; Z88.8 Allergy status to other drugs, medicaments and biological substances; Z79.899 Other long term (current) drug therapy; Y92.008 Other place in unspecified non-institutional (private) residence as the place of occurrence of the external cause

== ENCOUNTER → 2018-11-29 | Outpatient (CLI) | payer MEDICARE, OTHER | LOC: GMA MATASK 10:25 | PROVIDERS: ATTEND Family Medicine | DX: I10 Essential (primary) hypertension (principal) ==

== ENCOUNTER → 2018-12-02 | Outpatient (CLI) | payer MEDICARE, OTHER | LOC: LAB.O 08:06 | PROVIDERS: ATTEND Family Medicine | DX: R10.84 Generalized abdominal pain (principal) ==

== ENCOUNTER 2019-04-03 16:00 | Inpatient (IN) | payer MEDICARE, OTHER ==
--- NOTE | 2019-04-03 16:30 | HP ---
SUPERVISING PHYSICIAN: Fede Mcgarry MD CHIEF COMPLAINT: Cough and worsening shortness of breath. HISTORY OF PRESENT ILLNESS: This is a 73 year-old female patient who was seen in her primary care physician's office, Dr. Paul Limon, today. Her upper respiratory symptoms have been going on for about four weeks. About a week ago she saw Dr. Limon for pneumonia and was placed on doxycycline. She had not improved the last few days and she came back to see him today. She was significantly short of breath and her x-ray at the clinic showed bilateral pulmonary vascular congestion with findings that appeared to represent early changes and congestive heart failure. Her last echocardiogram was in 2014. She had an ejection fraction of 40% at that time. She had some swelling in her lower extremities that had increased over the last week or so. At the clinic, her CBC was unremarkable. She had a BNP of 158 and due to her history of congestive heart failure as well as her pneumonia was failed outpatient therapy, her respiratory status, I was called for direct admission. PAST MEDICAL HISTORY: 1. Coronary artery disease. 2. Hypertension. 3. Hyperlipidemia. 4. Sick sinus syndrome. 5. Congestive heart failure of unknown etiology with an ejection fraction in 2015 per ehrlichiosis of 40%. . PAST SURGICAL HISTORY: 1. Hysterectomy. 2. Appendectomy. 3. Cholecystectomy. 4. Left arm fracture with open reduction and internal fixation. 5. Coronary artery stents.. CURRENT MEDICATIONS: Per the EMR and awaiting verification. ALLERGIES: LOVENOX AND STEROIDS. FAMILY HISTORY: Positive for heart surgery and diabetes mellitus. . SOCIAL HISTORY: The patient is retired. She denies any smoking, ETOH or illicit drug use.. REVIEW OF SYSTEMS: GENERAL: Positive for chills and subjective fever. Negative for weight changes. HEENT: Negative for sinus symptoms, ear pain, vision changes, sore throat. RESPIRATORY: Positive for cough and shortness of breath, negative for wheezing. CARDIAC: Negative for chest pain, palpitations, tachycardia. GI: Negative for nausea, vomiting, diarrhea or constipation. GENITOURINARY: Negative for hematuria, dysuria, polyuria. MUSCULOSKELETAL: Negative for arthralgias, myalgias. INTEGUMENT: Negative for lesions or rashes. NEUROLOGICAL: Positive for weakness, negative for headaches, dizziness or seizures. PHYSICAL EXAMINATION: VITAL SIGNS: Temperature 97.8, heart rate 69, blood pressure 152/53. respiratory rate 18, oxygen saturation 91% on room air. GENERAL: This is a 73 year-old female patient lying in her hospital bed. She is in no acute distress HEENT: Normocephalic and atraumatic. Pupils are equal and reactive. Oropharynx is clear. NECK: Supple without mass. There is no discernible jugular venous distention. CHEST: Scattered crackles throughout. Diminished somewhat at the bases. There is equal rise and fall of the chest with inspiration and expiration. CARDIOVASCULAR: Regular rate and rhythm. ABDOMEN: Soft, non-tender, nondistended. Bowel sounds are positive. EXTREMITIES: No cyanosis or clubbing. there is +2 pedal edema bilaterally. NEUROLOGIC: She is alert and oriented x 3. Cranial nerves II through XII are grossly intact as tested. Labs and films are as per the history of present illness. Labs done here show normal electrolytes with BUN of 34 and creatinine of 1.54. Her coagulation studies are within normal limits. All other labs and films have been reviewed via the EMR. ASSESSMENT: 1. Dyspnea with an exacerbation of congestive heart failure, uncertain etiology. Last echocardiogram was in 2014. Her ejection fraction at that time was 40%. 2. Bilateral pneumonia, failed outpatient treatment. She was on doxycycline as an outpatient. 3. Acute on chronic renal insufficiency, baseline creatinine of 1.1, today it is 1.54. 4. Cough secondary to #2 as well as #1. 5. Chronic obstructive pulmonary disease with questionable exacerbation. 6. Cardiomegaly. 7. Hypertension. 8. Hyperlipidemia. 9. History of sick sinus syndrome, pacemaker insertion. 10. Coronary artery disease. PLAN: The patient is being placed in observation. I have given her IV diuretics as well as started her on a pneumonia protocol. Will give her Rocephin and azithromycin with aggressive pulmonary hygiene. She is presently on a beta darlene as well as an ARB and Lasix and spironolactone. I will repeat a chest x-ray with lab in the morning. Will monitor her renal function closely. She may need a judicious amount of fluid but I will watch that overnight. Her sputum and blood cultures have also been collected and will watch those closely. Home medications will be restarted as soon as they are available. I will also order an echocardiogram for tomorrow. She is on Xarelto which will be sufficient for DVT prophylaxis. I placed her on a PPI for ulcer prophylaxis and will monitor closely and follow as needed. #[id number] [facility]
[2019-04-03] MEDS ORDERED: SODIUM CHLORIDE 0.9% (FLUSH) 10 ML SYG IV PRN (17:16)
[2019-04-03] MEDS ORDERED: NITROGLYCERIN 0.4 MG 25 EA TAB SL PRN (17:16)
[2019-04-03] MEDS ORDERED: ONDANSETRON INJ 4 MG/2 ML VIAL IV PRN (17:16)
[2019-04-03] MEDS ORDERED: ACETAMINOPHEN 325 MG TAB PO PRN (17:16)
[2019-04-03] MEDS ORDERED: LEVALBUTEROL NEBS 1.25 MG/3 ML VIAL INH PRN (17:24)
[2019-04-03] MEDS ORDERED: cefTRIAXone SODIUM 1 GM in SODIUM CHL 0.9% 50ML MIN-BAG+ 50 ML IVPB ONE (17:30)
[2019-04-03] MEDS ORDERED: FUROSEMIDE INJ 40 MG/4 ML VIAL IV ONE (17:53)
[2019-04-03] MEDS ORDERED: SODIUM CHLORIDE 0.9% 250ML 250 ML ONE (17:57)
[2019-04-03] MEDS ORDERED: AZITHROMYCIN IV 500 MG VIAL IVPB ONE (17:58)
[2019-04-03] MEDS ORDERED: SODIUM CHL 0.9% 50ML MIN-BAG+ 50 ML IVPB ONE ×2 (17:58→19:55)
[2019-04-03] MEDS ORDERED: cefTRIAXone SODIUM 1 GM VIAL ONE ×2 (17:58→19:56)
[2019-04-03] MEDS ORDERED: AZITHROMYCIN IV 500 MG in SODIUM CHLORIDE 0.9% 250ML 250 ML IVPB ONE (18:00)
[2019-04-03] MEDS: IV SET AND CAP CHANGE INJ INJ SCH (19:19)
[2019-04-03] MEDS: SODIUM CHLORIDE 0.9% (FLUSH) 10 ML SYG IV SCH (20:40)
[2019-04-03] MEDS ORDERED: NON-FORMULARY MEDICATION 1 EA MIS (Rivaroxaban [Xarelto] 20 MG) PO SCH (21:00)
[2019-04-03] MEDS: HEMP OIL PO SCH (21:00)
[2019-04-03] MEDS ORDERED: RIVAROXABAN 10 MG TAB ONE (21:18)
[2019-04-03] MEDS: ATORVASTATIN 20 MG TAB PO SCH (21:23)
[2019-04-03] MEDS: LEVALBUTEROL NEBS 1.25 MG/3 ML VIAL INH SCH (21:32)
[2019-04-04] MEDS: cefTRIAXone SODIUM 1 GM in SODIUM CHL 0.9% 50ML MIN-BAG+ 50 ML IVPB SCH (06:17)
--- NOTE | 2019-04-04 06:39 | RAD ---
EXAM: XR Chest, 2 Views CLINICAL HISTORY: CHF TECHNIQUE: Frontal and lateral views of the chest. COMPARISON: 06/15/2018. FINDINGS: Limitations: None. Lungs: Unremarkable. No consolidation. Pleural space: Unremarkable. No pneumothorax. Heart: Stable cardiac enlargement. Mediastinum: Unremarkable. Bones/joints: Unremarkable. Tubes, lines and devices: Stable cardiac pacing device. IMPRESSION: No acute findings in the chest. Electronically signed by: Yolanda Smith MD 04/04/2019 6:38 AM SURGICAL FIRST ASSISTANT
[2019-04-04] MEDS: PANTOPRAZOLE SODIUM IV 40 MG VIAL IV SCH (07:09)
[2019-04-04] MEDS: LEVALBUTEROL NEBS 1.25 MG/3 ML VIAL INH SCH ×3 (08:41→21:01)
[2019-04-04] MEDS ORDERED: FUROSEMIDE INJ 100 MG/10 ML VIAL IV SCH (09:00)
[2019-04-04] MEDS ORDERED: SODIUM CHLORIDE 0.9% 250ML 250 ML ONE (09:19)
[2019-04-04] MEDS ORDERED: AZITHROMYCIN IV 500 MG VIAL IVPB ONE (09:19)
[2019-04-04] MEDS: LOSARTAN POTASSIUM 25 MG TAB PO SCH (09:25)
[2019-04-04] MEDS: FENOFIBRIC ACID 135 MG CAP PO SCH (09:25)
[2019-04-04] MEDS: SPIRONOLACTONE 25 MG TAB PO SCH (09:25)
[2019-04-04] MEDS ORDERED: SODIUM CHLORIDE 0.45% 1000ML 500 ML IVS ONE ×2 (09:26→12:00)
[2019-04-04] MEDS: SODIUM CHLORIDE 0.9% (FLUSH) 10 ML SYG IV SCH ×2 (09:27→20:39)
[2019-04-04] MEDS: AZITHROMYCIN IV 500 MG in SODIUM CHLORIDE 0.9% 250ML 250 ML IVPB SCH (09:28)
[2019-04-04] MEDS: PROPRANOLOL HCL 60 MG PO SCH (10:33)
[2019-04-04] MEDS ORDERED: HYDROCORT 2.5% CRM (ANUSOL HC) 30 GM TUBE PR PRN (11:10)
[2019-04-04] MEDS: BIFIDOBACTERIUM INFANTIS 4 MG CAP PO SCH ×2 (12:35→20:33)
[2019-04-04] MEDS: RIVAROXABAN 10 MG TAB PO SCH ×3 (12:36→20:39)
--- NOTE | 2019-04-04 14:54 | PN ---
DATE: 04/04/19 SUPERVISING PHYSICIAN: Fede Mcgarry M.D. SUBJECTIVE: The patient is on the side of the bed talking to her [id number]. She complains of her hemorrhoids bleeding as well as some diarrhea. She also has some coughing and shortness of breath with congestion. She is quite concerned about the extra fluid on her heart and lungs, but her swelling in her ankles is better. Denies chest pain, nausea or vomiting. OBJECTIVE: VITAL SIGNS: Temperature 98, heart rate 70, blood pressure 130/64, respiratory rate 20, O2 saturation 98% on room air. RESPIRATORY: A few scattered crackles throughout and slightly diminished at the bases. CARDIAC: Regular rate and rhythm. GASTROINTESTINAL: Abdomen is soft, nondistended, non-tender. Bowel sounds are positive. EXTREMITIES: No cyanosis or clubbing. She has a trace of pedal edema bilaterally. Bilateral pedal pulses palpable at +2. NEUROLOGIC: She is awake, alert and oriented times three. LABORATORY: CBC is unremarkable. Electrolytes are basically within normal limits. BUN is slightly improved at 31 and creatinine is slightly improved at 1.42. Liver function tests are within normal limits. Preliminary blood cultures are negative to date. Chest x-ray shows stable-appearing chest. All other labs and films have been reviewed via the EMR. ASSESSMENT: 1. Dyspnea with an exacerbation of congestive heart failure, uncertain etiology. Last echocardiogram was in 2014. Her ejection fraction at that time was 40%. 2. Bilateral pneumonia, failed outpatient treatment. She was on doxycycline as an outpatient. 3. Acute on chronic renal insufficiency, baseline creatinine of 1.1, today it is 1.54. 4. Cough secondary to #2 as well as #1. 5. Chronic obstructive pulmonary disease with questionable exacerbation. 6. Cardiomegaly. 7. Hypertension. 8. Hyperlipidemia. 9. History of sick sinus syndrome, pacemaker insertion. 10. Coronary artery disease. 11. External bleeding hemorrhoids. 12. Mild diarrhea. PLAN: We will continue present supportive care. She will get another dose of IV Lasix this afternoon and then I will change her to her routine dosing. Repeat her lab in the morning. I have added a probiotic as well as some Anusol for her hemorrhoids. I am still awaiting the echocardiogram results. She also asked for Xopenex to have on hand at home and I have sent her some Xopenex to our Pharmacy for routine medication. She has an appointment with Dr. Limon next week after discharge. Will continue to monitor closely and follow as needed. #[id number] MTDD
[2019-04-04] MEDS ORDERED: FUROSEMIDE INJ 40 MG/4 ML VIAL IV ONE (17:22)
[2019-04-04] MEDS ORDERED: RIVAROXABAN 10 MG TAB ONE (18:51)
[2019-04-04] MEDS ORDERED: SODIUM CHL 0.9% 50ML MIN-BAG+ 50 ML IVPB ONE (18:51)
[2019-04-04] MEDS ORDERED: cefTRIAXone SODIUM 1 GM VIAL ONE (18:52)
[2019-04-04] MEDS: ATORVASTATIN 20 MG TAB PO SCH (20:33)
[2019-04-04] MEDS: HEMP OIL PO SCH (20:38)
[2019-04-05] MEDS: cefTRIAXone SODIUM 1 GM in SODIUM CHL 0.9% 50ML MIN-BAG+ 50 ML IVPB SCH (05:31)
[2019-04-05] MEDS: PANTOPRAZOLE SODIUM IV 40 MG VIAL IV SCH (06:21)
[2019-04-05] MEDS: LEVALBUTEROL NEBS 1.25 MG/3 ML VIAL INH SCH ×3 (09:01→21:15)
[2019-04-05] MEDS ORDERED: SODIUM CHLORIDE 0.9% 250ML 250 ML ONE (09:02)
[2019-04-05] MEDS ORDERED: AZITHROMYCIN IV 500 MG VIAL IVPB ONE (09:03)
[2019-04-05] MEDS: SPIRONOLACTONE 25 MG TAB PO SCH (09:09)
[2019-04-05] MEDS: LORATADINE 10 MG TAB PO SCH (09:09)
[2019-04-05] MEDS: LOSARTAN POTASSIUM 25 MG TAB PO SCH (09:09)
[2019-04-05] MEDS: FENOFIBRIC ACID 135 MG CAP PO SCH (09:09)
[2019-04-05] MEDS: BIFIDOBACTERIUM INFANTIS 4 MG CAP PO SCH ×2 (09:09→20:40)
[2019-04-05] MEDS: AZITHROMYCIN IV 500 MG in SODIUM CHLORIDE 0.9% 250ML 250 ML IVPB SCH (09:10)
[2019-04-05] MEDS: SODIUM CHLORIDE 0.9% (FLUSH) 10 ML SYG IV SCH ×2 (09:10→20:42)
[2019-04-05] MEDS: PROPRANOLOL HCL 60 MG PO SCH (09:14)
[2019-04-05] MEDS: FUROSEMIDE 40 MG TAB PO SCH (09:14)
[2019-04-05] MEDS ORDERED: BENZONATATE PERLES 100 MG CAP PO SCH (15:00)
[2019-04-05] MEDS ORDERED: FUROSEMIDE INJ 40 MG/4 ML VIAL IV ONE (15:00)
[2019-04-05] MEDS: guaiFENesin ER TAB 600 MG TAB PO SCH ×2 (15:01→20:41)
[2019-04-05] MEDS: BENZONATATE PERLES 100 MG CAP PO PRN ×2 (15:01→20:43)
[2019-04-05] MEDS ORDERED: SODIUM CHL 0.9% 50ML MIN-BAG+ 50 ML IVPB ONE (20:32)
[2019-04-05] MEDS ORDERED: cefTRIAXone SODIUM 1 GM VIAL ONE (20:32)
[2019-04-05] MEDS: HEMP OIL PO SCH (20:41)
[2019-04-05] MEDS: ATORVASTATIN 20 MG TAB PO SCH (20:41)
[2019-04-05] MEDS: RIVAROXABAN 10 MG TAB PO SCH (20:41)
--- NOTE | 2019-04-05 21:49 | PN ---
DATE: 04/05/19 SUPERVISING PHYSICIAN: Fede Mcgarry M.D. SUBJECTIVE: The patient is sitting up in bed. She is complaining of some shortness of breath with exertion, but her cough is much worse. It is keeping her up at night. It is dry and hacking, but she denies chest pain, nausea, vomiting or diarrhea. OBJECTIVE: VITAL SIGNS: Temperature 98.2, heart rate 87, blood pressure 124/60, respiratory rate 18, O2 sat 98% on room air. RESPIRATORY: Scattered rhonchi throughout with a few expiratory wheezes in the apices. CARDIAC: Regular rate and rhythm. GASTROINTESTINAL: Abdomen is soft, nondistended, non-tender. Bowel sounds are positive. NEUROLOGIC: She is awake, alert and oriented times three. LABORATORY: WBCs are 6.6 with hemoglobin 11.4, hematocrit 35. Electrolytes are basically within normal limits. BUN is 28, creatinine 1.37. Preliminary blood cultures show no growth after 24 hours. Echocardiogram shows: 1. At least mildly reduced left ventricular systolic function and visually estimated ejection fraction is about 40%. Mild to moderate global hypokinesis noted. 2. Mild to moderate global hypokinesis. 3. Mild left atrial enlargement. 4. Mildly reduced right ventricular systolic function and mild right ventricular enlargement noted. 5. Trace of mitral valve regurgitation. 6. There is mild to moderate tricuspid valve regurgitation. 7. Mildly elevated estimated right ventricular systolic pressure. 8. Normal pericardium. All other labs and films have been reviewed via the EMR. ASSESSMENT: 1. Dyspnea with an exacerbation of congestive heart failure with diastolic dysfunction and mild systolic dysfunction. Her echocardiogram yesterday showed moderate global hypokinesis with an ejection fraction of approximately 40%. 2. Bilateral pneumonia, failed outpatient treatment. She had been on doxycycline as an outpatient. She is now on azithromycin and Rocephin. 3. Acute on chronic renal insufficiency. Her baseline creatinine is 1.1. Her creatinine today it is 1.37. 4. Cough secondary to #2 as well as #1. 5. Chronic obstructive pulmonary disease with questionable exacerbation. 6. Cardiomegaly. 7. Hypertension. 8. Hyperlipidemia. 9. History of sick sinus syndrome, pacemaker insertion. 10. Coronary artery disease. 11. External bleeding hemorrhoids. 12. Mild diarrhea. PLAN: We will continue present supportive care. She is presently on her p.o. Lasix and she has diuresed approximately 2 liters. She may need another dose of IV Lasix tomorrow as she gained 2 pounds overnight. I will do a lab and chest x-ray tomorrow and continue to watch her kidney function. I have also ordered Tessalon Perles and Mucinex, and encouraged good pulmonary hygiene including asking for her p.r.n. breathing treatments. Hopefully she can be discharged tomorrow or the next day with close followup with Dr. Limon. #[id number] [facility]
[2019-04-06] MEDS: cefTRIAXone SODIUM 1 GM in SODIUM CHL 0.9% 50ML MIN-BAG+ 50 ML IVPB SCH (05:41)
[2019-04-06] MEDS: PANTOPRAZOLE SODIUM IV 40 MG VIAL IV SCH (06:19)
[2019-04-06] MEDS: LEVALBUTEROL NEBS 1.25 MG/3 ML VIAL INH SCH ×3 (08:20→20:48)
[2019-04-06] MEDS ORDERED: SODIUM CHLORIDE 0.9% 250ML 250 ML ONE (08:25)
[2019-04-06] MEDS ORDERED: AZITHROMYCIN IV 500 MG VIAL IVPB ONE (08:27)
--- NOTE | 2019-04-06 09:01 | RAD ---
EXAM DESCRIPTION: X-ray two view chest. CLINICAL HISTORY: 73 years Female, chf; pna COMPARISON: 04/04/2019 and 06/15/2018 TECHNIQUE: PA and Lateral views of the chest performed on 04/06/2019 at 7:24 AM FINDINGS: The lungs are well expanded and are grossly clear. There is very mild prominence of the interstitial markings similar when compared to the prior studies possibly representing mild interstitial edema or possibly fibrosis The costophrenic sulci are clear. There is no evidence of a pneumothorax. There is a stable left subclavian multi lead AICD. The cardiac silhouette is stable and is mildly prominent. The mediastinal contours are normal. No acute osseous abnormalities are identified. No focal soft tissue abnormalities are identified. IMPRESSION: 1. No significant interval change when compared to the prior studies. 2. Very mild nonspecific prominence of the interstitial markings which could reflect mild interstitial edema or possibly fibrosis. 3. Stable prominence of the cardiac silhouette and stable AICD. Electronically signed by: Ema Kumari DO 04/06/2019 8:[address] [facility]
[2019-04-06] MEDS: PROPRANOLOL HCL 60 MG PO SCH (09:09)
[2019-04-06] MEDS: BENZONATATE PERLES 100 MG CAP PO PRN ×2 (09:12→21:20)
[2019-04-06] MEDS: BIFIDOBACTERIUM INFANTIS 4 MG CAP PO SCH ×2 (09:13→21:21)
[2019-04-06] MEDS: FUROSEMIDE 40 MG TAB PO SCH (09:13)
[2019-04-06] MEDS: LOSARTAN POTASSIUM 25 MG TAB PO SCH (09:13)
[2019-04-06] MEDS: guaiFENesin ER TAB 600 MG TAB PO SCH ×2 (09:13→21:20)
[2019-04-06] MEDS: LORATADINE 10 MG TAB PO SCH (09:13)
[2019-04-06] MEDS: SPIRONOLACTONE 25 MG TAB PO SCH (09:13)
[2019-04-06] MEDS: FENOFIBRIC ACID 135 MG CAP PO SCH (09:13)
[2019-04-06] MEDS: SODIUM CHLORIDE 0.9% (FLUSH) 10 ML SYG IV SCH ×2 (09:14→21:24)
[2019-04-06] MEDS: AZITHROMYCIN IV 500 MG in SODIUM CHLORIDE 0.9% 250ML 250 ML IVPB SCH (09:14)
[2019-04-06] MEDS: IV SET AND CAP CHANGE INJ INJ SCH (17:43)
[2019-04-06] MEDS ORDERED: cefTRIAXone SODIUM 1 GM VIAL ONE (20:38)
[2019-04-06] MEDS ORDERED: SODIUM CHL 0.9% 50ML MIN-BAG+ 50 ML IVPB ONE (20:38)
[2019-04-06] MEDS: RIVAROXABAN 10 MG TAB PO SCH (21:21)
[2019-04-06] MEDS: ATORVASTATIN 20 MG TAB PO SCH (21:21)
[2019-04-06] MEDS: HEMP OIL PO SCH (21:24)
[2019-04-07] VITALS: O2SAT 95
[2019-04-07] MEDS: PANTOPRAZOLE SODIUM IV 40 MG VIAL IV SCH (05:53)
[2019-04-07] MEDS: cefTRIAXone SODIUM 1 GM in SODIUM CHL 0.9% 50ML MIN-BAG+ 50 ML IVPB SCH (05:53)
[2019-04-07] MEDS ORDERED: SODIUM CHLORIDE 0.9% 250ML 250 ML ONE (07:11)
[2019-04-07] MEDS ORDERED: AZITHROMYCIN IV 500 MG VIAL IVPB ONE (07:12)
[2019-04-07] MEDS: LEVALBUTEROL NEBS 1.25 MG/3 ML VIAL INH SCH (07:39)
--- NOTE | 2019-04-07 09:20 | PN ---
DATE: 04/06/19 SUPERVISING PHYSICIAN: Fede Mcgarry M.D. SUBJECTIVE: The patient is sitting up on the side of the bed. She still has some complaints of a productive cough as well as some shortness of breath but she does feel better than she did yesterday. Her cough at times does feel like it's dry but she is starting to cough up more phlegm than she had previous. She denies chest pain, nausea, vomiting or diarrhea. OBJECTIVE: VITAL SIGNS: Temperature 98.4, heart rate 71, blood pressure 149/80, respiratory rate 20, oxygen saturation 97% on room air. RESPIRATORY: Scattered rhonchi throughout with expiratory wheezes in the left upper lobe. . CARDIAC: Regular rate and rhythm. GASTROINTESTINAL: Abdomen is soft, nondistended, non-tender. Bowel sounds are positive. NEUROLOGIC: She is awake, alert and oriented times three. LABORATORY: CBC is unremarkable. Electrolytes are basically within normal limits. Creatinine 7.41, she has a baseline creatinine of about 1.1 to 1.3. Chest x-ray shows no significant interval change when compared to the prior study, very mild nonspecific prominence of interstitial markings which could reflect mild by interstitial edema or possibly fibrosis. Stable prominence of the cardiac silhouette and stable AICD. CT of the chest showed no evidence for peripheral interstitial thickening or honeycombing. All other labs and films have been reviewed via the EMR. ASSESSMENT: 1. Dyspnea with an exacerbation of congestive heart failure with diastolic dysfunction and mild systolic dysfunction. Her echocardiogram yesterday showed moderate global hypokinesis with an ejection fraction of approximately 40%. 2. Bilateral pneumonia, failed outpatient treatment. She had been on doxycycline as an outpatient. She is now on azithromycin and Rocephin. 3. Acute on chronic renal insufficiency. Her baseline creatinine is 1.1. Her creatinine today it is 1.37. 4. Cough secondary to #2 as well as #1. 5. Chronic obstructive pulmonary disease with questionable exacerbation. 6. Cardiomegaly. 7. Hypertension. 8. Hyperlipidemia. 9. History of sick sinus syndrome, pacemaker insertion. 10. Coronary artery disease. 11. External bleeding hemorrhoids. 12. Mild diarrhea. PLAN: We will continue present supportive care. She is unable to stake steroids and continues to have quite a bit of inflammation so will continue with the present antibiotics. Hopefully she can be discharged tomorrow with close followup with Dr. Limon. I have encouraged her to walk in the hallways and she will need to be weaned off her oxygen, encouraged good pulmonary hygiene and will continue to monitor closely and follow as needed. #[id number] [facility]
[2019-04-07] MEDS: BIFIDOBACTERIUM INFANTIS 4 MG CAP PO SCH (09:57)
[2019-04-07] MEDS: AZITHROMYCIN IV 500 MG in SODIUM CHLORIDE 0.9% 250ML 250 ML IVPB SCH (09:57)
[2019-04-07] MEDS: FUROSEMIDE 40 MG TAB PO SCH (09:57)
[2019-04-07] MEDS: SPIRONOLACTONE 25 MG TAB PO SCH (09:57)
[2019-04-07] MEDS: LORATADINE 10 MG TAB PO SCH (09:58)
[2019-04-07] MEDS: FENOFIBRIC ACID 135 MG CAP PO SCH (09:58)
[2019-04-07] MEDS: LOSARTAN POTASSIUM 25 MG TAB PO SCH (09:58)
[2019-04-07] MEDS: guaiFENesin ER TAB 600 MG TAB PO SCH (09:58)
[2019-04-07] MEDS: SODIUM CHLORIDE 0.9% (FLUSH) 10 ML SYG IV SCH (09:59)
[2019-04-07] MEDS: PROPRANOLOL HCL 60 MG PO SCH (10:02)
[2019-04-07 10:18] VITALS: BP 136/76; TEMP 97.8
--- NOTE | 2019-04-21 08:38 | DS ---
SUPERVISING PHYSICIAN: TAMMY NUNO MD ADMITTING DIAGNOSES: 1. Dyspnea with an exacerbation of congestive heart failure, uncertain etiology. Last echocardiogram was in 2014. Her ejection fraction at that time was 40%. 2. Bilateral pneumonia, failed outpatient treatment. She was on doxycycline as an outpatient. 3. Acute on chronic renal insufficiency, baseline creatinine of 1.1, today it is 1.54. 4. Cough secondary to #2 as well as #1. 5. Chronic obstructive pulmonary disease with questionable exacerbation. 6. Cardiomegaly. 7. Hypertension. 8. Hyperlipidemia. 9. History of sick sinus syndrome, pacemaker insertion. 10. Coronary artery disease. DISCHARGE DIAGNOSES: 1. Dyspnea with an exacerbation of congestive heart failure with diastolic dysfunction and mild systolic dysfunction. Her echocardiogram yesterday showed moderate global hypokinesis with an ejection fraction of approximately 40%. 2. Bilateral pneumonia, failed outpatient treatment. She had been on doxycycline as an outpatient. She is now on azithromycin and Rocephin. 3. Acute on chronic renal insufficiency. Her baseline creatinine is 1.1. Her creatinine today it is 1.37. 4. Cough secondary to #2 as well as #1. 5. Chronic obstructive pulmonary disease with questionable exacerbation. 6. Cardiomegaly. 7. Hypertension. 8. Hyperlipidemia. 9. History of sick sinus syndrome, pacemaker insertion. 10. Coronary artery disease. 11. External bleeding hemorrhoids. 12. Mild diarrhea. REASON FOR HOSPITALIZATION: : This is a 73 year-old female patient who was seen in her primary care physician's office, Dr. Paul Limon, today. Her upper respiratory symptoms have been going on for about four weeks. About a week ago she saw Dr. Limon for pneumonia and was placed on doxycycline. She had not improved the last few days and she came back to see him today. She was significantly short of breath and her x-ray at the clinic showed bilateral pulmonary vascular congestion with findings that appeared to represent early changes and congestive heart failure. Her last echocardiogram was in 2014. She had an ejection fraction of 40% at that time. She had some swelling in her lower extremities that had increased over the last week or so. At the clinic, her CBC was unremarkable. She had a BNP of 158 and due to her history of congestive heart failure as well as her pneumonia was failed outpatient LABORATORY STUDIES: White count on admission was 7,400, at discharge was 5,700. Hemoglobin and hematocrit were showing to be stable at 11.7 and 36.2 respectively. Differential was within normal limits without a left shift. Coagulation studies were within normal limits. Electrolytes were within normal limits on admission. At discharge, creatinine was 1.41 which is down from initial of 1.54. Liver functions were all within normal limits. Magnesium normal at 2.3. MICROBIOLOGY: Sputum culture final showed mixed normal respiratory tray. Blood cultures remained negative after 5 days. RADIOLOGY: Chest x-ray per radiology interpretation showed no acute findings on admission of the chest. She had an echocardiogram. Please see that report for details. Ejection fraction was estimated at 40% with a reduced left ventricular systolic dysfunction. Aortic valve was noted to be normal with no regurgitation. HOSPITAL COURSE: Ms. Mcdonald was admitted on 04/03/19 as noted above for dyspnea related to exacerbation of her congestive heart failure in conjunction with bilateral pneumonia. She was started on antibiotics but no steroids. She did well with antibiotic coverage that included Rocephin and azithromycin. She was diuresed, continued her home medications and was showing improvement and clinically stable . It was felt that she could continue with outpatient management. Therefore, she was discharged. PLAN: Ms. Mcdonald was discharged on 04/07/19 with instructions to followup with Dr. Limon as scheduled on 04/09. She was to resume home medications as instructed and return to the hospital if she had any worsening symptoms. DIET: Low sodium. ACTIVITIES: Increase as tolerated. NEW MEDICATIONS AT DISCHARGE: 1. Cefdinir 300 mg twice a day for 5 days. 2. Xopenex breathing treatments 1.25 mg, one box, no refills. All other medications prior to hospitalization were resumed. Condition on discharge was stable and improved. DISPOSITION: Patient was discharged home. #[id number] [facility]
== END 2019-04-07 14:13 | disposition home or self-care (01) | DRG 291 ==
LOC: MS 16:00 → OBSVTOIN 04-04 14:23
PROVIDERS: ADMIT Nurse Practitioner Acute Care; ATTEND Nurse Practitioner Acute Care
DX: I13.0 Hypertensive heart and chronic kidney disease with heart failure and stage 1 through stage 4 chronic kidney disease, or unspecified chronic kidney disease (principal); I50.43 Acute on chronic combined systolic (congestive) and diastolic (congestive) heart failure; J18.9 Pneumonia, unspecified organism; J44.0 Chronic obstructive pulmonary disease with (acute) lower respiratory infection; I25.10 Atherosclerotic heart disease of native coronary artery without angina pectoris; E78.5 Hyperlipidemia, unspecified; N18.9 Chronic kidney disease, unspecified; R19.7 Diarrhea, unspecified; K64.4 Residual hemorrhoidal skin tags; Z95.0 Presence of cardiac pacemaker; Z95.5 Presence of coronary angioplasty implant and graft; Z88.8 Allergy status to other drugs, medicaments and biological substances

== ENCOUNTER → 2019-05-27 | Outpatient (CLI) | payer MEDICARE, OTHER ==
--- NOTE | 2019-05-28 12:37 | US ---
US THYROID CLINICAL STATEMENT:74 years Female NONTOXIC SINGLE THYROID NODULE. . No palpable mass, no prior thyroid surgery and no medical therapy. COMPARISON: None TECHNIQUE: Transcutaneous scanning, grayscale and Doppler modes. FINDINGS: Size right thyroid lobe: 3.3 x 1.6 x 1.4 cm Size left thyroid lobe: 3.5 x 1.5 x 1.3 cm Size isthmus: 0.47 cm Estimated total number of nodules greater than or equal to 1 cm: None.. Heterogeneous echoes. No cysts or large calcifications. Nodule 1: Size: 0.6 x 0.5 x 0.4 cm Location: Right Mid Composition: solid or almost completely solid: 2 points Echogenicity: hypoechoic: 2 points Shape: wider than tall: 0 points Margins: smooth: 0 points Echogenic foci: none: 0 points ACR Total Points: 4; ACR TI-RADS risk category: TR4 - moderately suspicious nodule. Nodule 2: Size: 0.4 x 0.4 x 0.3 cm Location: Left Mid Composition: spongiform: 0 points. Not vascular. Echogenicity: hypoechoic: 2 points Shape: wider than tall: 0 points Margins: smooth: 0 points Echogenic foci: none: 0 points ACR Total Points: 2; ACR TI-RADS risk category: TR2 - nonsuspicious nodule. No dominant solid mass, no distinct cyst, and no large calcifications in the surrounding soft tissues. IMPRESSION: 1. Nodule 1: ACR TI-RADS 2017 Category TR4. Recommend: No further follow-up.. Recommendations based upon [employer] Best Practice recommendations and ACR TI-RADS 2017 guidelines. Please see below*. 2. Nodule 2: ACR TI-RADS 2017 Category TR2. Recommend: No further follow-up. 3. Surrounding soft tissues are unremarkable. *ACR TI-RADS 2017 Recommendations for imaging follow-up of nodules: TR1: No FNA or follow up TR2: No FNA or follow up TR3: FNA if >/= 2.5 cm, follow up if 1.5 - 2.4 cm in 1, 3, and 5 years TR4: FNA if >/= 1.5 cm, follow up if 1.0 - 1.4 cm in 1, 2, 3, and 5 years TR5: FNA if >/= 1.0 cm, follow up if 0.5 - 0.9 cm every year for 5 years ACR TI-RADS recommends that no more than two nodules with the highest ACR TI-RADS total point should be biopsied and no more than four nodules should be followed. These recommendations do not apply to patients with increased risk for thyroid cancer or patients with symptomatic thyroid disease. Electronically signed by: Juan Francisco Morin MD 05/28/2019 12:35 PM [facility]
== END ==
LOC: US 08:28
PROVIDERS: ATTEND Family Medicine
DX: E04.1 Nontoxic single thyroid nodule (principal)

== ENCOUNTER → 2019-07-01 | Outpatient (CLI) | payer MEDICARE, OTHER | DX: R60.9 Edema, unspecified (principal); I77.89 Other specified disorders of arteries and arterioles; M25.561 Pain in right knee ==

== ENCOUNTER → 2019-07-16 | Outpatient (CLI) | payer MEDICARE, OTHER ==
--- NOTE | 2019-07-16 13:24 | CT ---
PROVIDED CLINICAL HISTORY/REASON FOR EXAM: ABNORMAL IMAGING OF LOWER LIMBS TECHNIQUE: Volumetric CT angiographic data was obtained of the abdomen, pelvis, and lower extremities following the administration of IV contrast utilizing the CT angiography protocol. Multiplanar reformats. 3-D MIP images also submitted. This exam was performed according to our departmental dose-optimization program, which includes automated exposure control, adjustment of the mA and/or kV according to patient size and/or use of iterative reconstruction technique. COMPARISON STUDY: July 01, 2019 FINDINGS: Cholecystectomy. Perfusion anomaly in the posterior right hepatic lobe. No suspicious hepatic lesion. No biliary dilatation. The visualized spleen, pancreas and adrenal glands are unremarkable. Symmetric renal parenchymal enhancement. Right renal cyst. No hydronephrosis. No urolithiasis. Unremarkable bladder. Scattered colonic diverticula without focal inflammatory change. No evidence of bowel obstruction. No findings to suggest appendicitis. No adenopathy. No focal fluid collection. No free air. No acute or suspicious osseous abnormality. Scattered degenerative changes present. VASCULATURE Normal caliber abdominal aorta. High-grade focal stenosis at the origin of the celiac artery. Focal high-grade narrowing at the origin of the SMA. Mild disease at the origin of the bilateral renal arteries. Moderate diffuse atherosclerotic disease. The BENSON is patent. Right Common iliac: No hemodynamically significant stenosis. External iliac: No hemodynamically significant stenosis. Internal iliac:No hemodynamically significant stenosis. Left Common iliac: No hemodynamically significant stenosis. External iliac: No hemodynamically significant stenosis. Internal iliac:No hemodynamically significant stenosis. RIGHT LOWER EXTREMITY: Common femoral: No hemodynamically significant stenosis. Superficial femoral: No hemodynamically significant stenosis. Profunda femoral: No hemodynamically significant stenosis. Popliteal: No hemodynamically significant stenosis. Run off: Normal three vessel runoff. LEFT LOWER EXTREMITY: Common femoral: No hemodynamically significant stenosis. Superficial femoral: No hemodynamically significant stenosis. Profunda femoral: No hemodynamically significant stenosis. Popliteal: No hemodynamically significant stenosis. Run off: High origin of the anterior tibial artery. Three-vessel runoff. IMPRESSION: 1. Normal bilateral three-vessel runoff. 2. 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 Electronically signed by: Jerrell Mccarty MD 07/16/2019 1:22 PM CDT
== END ==
LOC: CT 11:00
PROVIDERS: ATTEND Family Medicine
DX: R93.6 Abnormal findings on diagnostic imaging of limbs (principal); I77.4 Celiac artery compression syndrome

== ENCOUNTER → 2019-09-11 | Outpatient (CLI) | payer MEDICARE, OTHER ==
--- NOTE | 2019-09-11 12:56 | RAD ---
EXAM DESCRIPTION: Pelvis CLINICAL HISTORY: PAIN IN RIGHT HIP COMPARISON: June 22, 2006 IMPRESSION: Single AP supine view of the pelvis shows no acute fracture, focal bone destruction, or joint dislocation. Joint space narrowing and sclerotic changes to the superior lateral acetabulum are seen bilaterally compatible with moderate osteoarthritic changes of the hips. Electronically signed by: Barry Mccabe MD 09/11/2019 12:55 PM CDT
--- NOTE | 2019-09-11 12:57 | RAD ---
EXAM DESCRIPTION: Knee,Right Complete CLINICAL HISTORY: PAIN IN RIGHT KNEE COMPARISON: None FINDINGS: 3 views right knee. Medial joint space loss is present with subchondral sclerosis and marginal osteophyte formation. Lateral and patellofemoral compartments are maintained. No fracture deformity. Low bone density suspected. Correlate with DEXA imaging. IMPRESSION: No acute fracture. Advanced medial compartment chondrosis/early osteoarthritis. Electronically signed by: Oliver Tay MD 09/11/2019 12:55 PM CDT
== END ==
LOC: RAD 10:01
PROVIDERS: ATTEND Orthopaedic Surgery
DX: M25.851 Other specified joint disorders, right hip (principal); M25.852 Other specified joint disorders, left hip; M17.11 Unilateral primary osteoarthritis, right knee; M94.261 Chondromalacia, right knee

== ENCOUNTER → 2019-09-24 | Outpatient (CLI) | payer MEDICARE, OTHER ==
--- NOTE | 2019-09-24 15:56 | US ---
EXAM DESCRIPTION: Venous,Lower Extremity RT: ULTRASOUND. CLINICAL HISTORY: RT KNEE PAIN COMPARISON: None Available. TECHNIQUE: Erwin-scale and doppler sonographic evaluation of the deep venous system of the right lower extremity. FINDINGS: Doppler evaluation shows normal color flow and normal phasicity and augmentation of the right common femoral vein, femoral vein, popliteal vein, greater saphenous vein, junction with the CFV. Also normal color flow and normal phasicity and augmentation of the peroneal, and posterior tibial vein. The right lower extremity deep veins were completely compressible; normal occlusion with transducer pressure. Erwin-scale survey showed no echogenic thrombus within these veins. IMPRESSION: 1. Duplex ultrasound evaluation of the right lower extremity deep venous system showing no evidence of thrombosis. Electronically signed by: Juan Francisco Morin MD 09/24/2019 3:54 PM CDT
== END ==
LOC: US 11:42
PROVIDERS: ATTEND Family Medicine
DX: R60.9 Edema, unspecified (principal); M25.561 Pain in right knee; I50.9 Heart failure, unspecified

== ENCOUNTER → 2019-10-02 | Outpatient (CLI) | payer MEDICARE, OTHER | LOC: GMA MATASK 10:44 | PROVIDERS: ATTEND Family Medicine | DX: I10 Essential (primary) hypertension (principal) ==

== ENCOUNTER → 2019-12-15 | Outpatient (CLI) | payer MEDICARE, OTHER | END | disposition home or self-care (01) | LOC: GMA MATASK 10:27 | PROVIDERS: ATTEND Family Medicine | DX: I10 Essential (primary) hypertension (principal) ==

== ENCOUNTER → 2019-12-30 | Outpatient (CLI) | payer MEDICARE, OTHER | LOC: GMA MATASK 11:28 | PROVIDERS: ATTEND Family Medicine | DX: I10 Essential (primary) hypertension (principal) ==

== ENCOUNTER 2020-02-25 14:38 | Emergency (ER) | payer MEDICARE, OTHER ==
--- NOTE | 2020-02-25 14:51 | ED.PDOC ---
History of Present Illness - General Time Seen by Provider: 02/25/20 14:47 Source: patient, RN notes reviewed, Vital Signs reviewed, EMS notes reviewed Additional Information: 74 year old with hx Atrial fibrillation with a pacemaker on Xarelto, patient presents to the ER after a fall, patient was standing up from a chair, she tripped and fell hitting the back of her head and complaining of neck pain. Patient admits LOC, but now she is awake alert appears in no distress except for the headache and neck pain. Patient arrived via EMS, they were unable to put a c-collar on her because of neck stiffness, and patient refusing the c-collar. Patient does not appear to have any neurological deficit during the initial evaluation - History of Present Illness Occurred: just prior to arrival Pain Location: head, neck Method of Injury: fall Improving Factors: nothing Worsening Factors: nothing Loss of Consciousness: prolonged (minutes) Associated Symptoms (Fall): nausea/vomiting Allergies/Adverse Reactions: Allergies Enoxaparin [From Lovenox] Allergy (Verified 12/31/19 22:38) Hives Levofloxacin [From Levaquin] Allergy (Verified 12/31/19 22:38) Steroids Allergy (Severe, Uncoded 12/22/17 18:09) Anaphylaxis Pt states that after administration of any steroids her mouth swells and she can not speak Home Medications: Ambulatory Orders Ascorbic Acid [Vitamin C] 2,000 mg PO DAILY 09/05/12 Cholecalciferol [Vitamin D3] 1,000 unit PO DAILY 09/05/12 Fenofibrate 160 mg PO DAILY 09/05/12 Fish Oil-Cholecalciferol [Fish Oil + D3 0840-7188 mg-Unit] 2 cap PO AM 09/05/12 Furosemide [Lasix] 40 mg PO DAILY 06/02/14 Atorvastatin Calcium [Lipitor] 20 mg PO BEDTIME 03/22/17 Rivaroxaban [Xarelto] 20 mg PO BEDTIME 03/22/17 Spironolactone 25 mg PO DAILY 03/22/17 Amiodarone HCl 200 mg PO BID 12/31/19 Calcium Carbonate-Cholecalcife [Calcium 600+D 600-800 mg-Unit] 1 tab PO DAILY 12/31/19 Garlic 1,000 mg PO DAILY 12/31/19 Primidone 50 mg PO TID 12/31/19 Sacubitril-Valsartan [Entresto 49-51 mg] 1 tablet PO BID 12/31/19 Review of Systems - Review of Systems Constitutional: States: no symptoms reported EENTM: States: no symptoms reported Respiratory: States: no symptoms reported Cardiology: States: no symptoms reported Gastrointestinal/Abdominal: States: no symptoms reported Genitourinary: States: no symptoms reported Musculoskeletal: States: no symptoms reported Skin: States: no symptoms reported Neurological: States: no symptoms reported Endocrine: States: no symptoms reported Hematologic/Lymphatic: States: no symptoms reported Past Medical History (General) - Patient Medical History Hx Seizures: No Hx Stroke: No Hx Dementia: No Hx Asthma: No Hx of COPD: No Hx Cardiac Disorders: Yes Hx Congestive Heart Failure: Yes Hx Pacemaker: Yes - defibrilator Hx Hypertension: Yes Hx Thyroid Disease: No Hx Diabetes: No Hx Gastroesophageal Reflux: No Hx Renal Disease: No Hx Cancer: No Hx of HIV: No Hx Hepatitis C: No Hx MRSA: No - Vaccination History Hx Tetanus, Diphtheria Vaccination: No - unknown Hx Influenza Vaccination: No Hx Pneumococcal Vaccination: Yes - Social History Hx Tobacco Use: No Hx Chewing Tobacco Use: No Hx Alcohol Use: No Hx Substance Use: No Hx Substance Use Treatment: No Hx Depression: No Hx Physical Abuse: No Hx Emotional Abuse: No Hx Suspected Abuse: No - Female History Patient : No Family Medical History - Family History Brother Living Status: Hx Cardiac Disease: Yes - brother/sister Hx Family Cancer: - natividad mitchell Hx Family;Other: DEMENTIA-mom Grandparents Living Status: Hx Family Cancer: Yes Mother Family History: Unknown Living Status: Hx Family Asthma: No Hx Family Congestive Heart Failure: No Hx Family Hypertension: No Hx Family Stroke: No Hx Cardiac Disease: No Hx Family Diabetes: No Hx Family Cancer: No Hx Family;Other: Dementia Physical Exam - Physical Exam General Appearance: Well Developed, Well Groomed, Well Hydrated, Well Nourished Head Injury: no evidence of injury Eye Exam: bilateral normal ENT Exam: hearing grossly normal, no evidence of ENT injury, no dental injury Neck Exam: non-tender, full range of motion, normal alignment, normal inspection Cardiovascular/Respiratory: regular rate, rhythm, no M/R/G, normal peripheral pulses, no JVD Gastrointestinal/Abdominal: normal bowel sounds, non tender, soft, no organomegaly Back Exam: normal inspection, no CVA tenderness, no vertebral tenderness Extremity Exam: no evidence of injury, normal range of motion, non-tender, no pedal edema Neurologic: guest service agent II-XII nml as tested, no motor/sensory deficits, alert, normal mood/affect, oriented x 3 Skin Exam: normal color - Paulina Coma Score Best Eye Response (Paulina): (4) open spontaneously Best Verbal Response (Paulina): (5) oriented Best Motor Response (Paulina): (6) obeys commands Atilio Total: 15 Progress - Progress Progress: Presented to the ER after a fall, patient was standing up from a chair she tripped and fell, hitting the back of her head, and complaining of neck pain Blood thinners due to atrial fibrillation. Patient GCS of 15 admits losing consciousness but does not feel any stress at the moment, patient head CT did not show evidence of basilar cisterns or cardiovascular cervical spine CT was also negative for fracture or subluxation it did show evidence of therapy changes. Patient will be discharged home with postconcussive syndrome instruction, and instructions to return to the ER immediately if there is any severe headache, nausea, vomiting, involuntary movements or any other obvious neurological deficit 02/25/20 15:50 Departure - Departure Clinical Impression: Fall Qualifiers: Encounter type: initial encounter Qualified Code(s): W19.XXXA - Unspecified fall, initial encounter Concussion Qualifiers: Encounter type: initial encounter Loss of consciousness presence/duration: with LOC of unspecified duration Qualified Code(s): S06.0X9A - Concussion with loss of consciousness of unspecified duration, initial encounter Disposition: Discharge to Home or Self Care Condition: Fair Instructions: Concussion, Adult (DC), Head Injury Observation (DC) Diet: resume usual diet Referrals: Paul Limon MD [Primary Care Provider] - 1-2 Weeks Home Medications: Ambulatory Orders Ascorbic Acid [Vitamin C] 2,000 mg PO DAILY 09/05/12 Cholecalciferol [Vitamin D3] 1,000 unit PO DAILY 09/05/12 Fenofibrate 160 mg PO DAILY 09/05/12 Fish Oil-Cholecalciferol [Fish Oil + D3 2269-5535 mg-Unit] 2 cap PO AM 09/05/12 Furosemide [Lasix] 40 mg PO DAILY 06/02/14 Atorvastatin Calcium [Lipitor] 20 mg PO BEDTIME 03/22/17 Rivaroxaban [Xarelto] 20 mg PO BEDTIME 03/22/17 Spironolactone 25 mg PO DAILY 03/22/17 Amiodarone HCl 200 mg PO BID 12/31/19 Calcium Carbonate-Cholecalcife [Calcium 600+D 600-800 mg-Unit] 1 tab PO DAILY 12/31/19 Garlic 1,000 mg PO DAILY 12/31/19 Primidone 50 mg PO TID 12/31/19 Sacubitril-Valsartan [Entresto 49-51 mg] 1 tablet PO BID 12/31/19 Additional Instructions: return to ER Immediately evere nausea vomiting headaches-does not confusion or any other obvious neurological deficit
[2020-02-25 14:52] VITALS: TEMP 98
--- NOTE | 2020-02-25 15:39 | CT ---
EXAM DESCRIPTION: CT-Head CLINICAL HISTORY: fall COMPARISON: 06/16 2018 TECHNIQUE: Multiple axial images of the head without contrast. Multiplanar reformatted images. This exam was performed according to our departmental dose-optimization program, which includes automated exposure control, adjustment of the mA and/or kV according to patient size and/or use of iterative reconstruction technique. FINDINGS: There is no CT evidence of intracranial hemorrhage, mass effect, or large territory infarction. Moderate generalized volume loss. Moderate patchy supratentorial white matter hypodensities. There are no abnormal extra-axial fluid collections. Vascular structures are unremarkable. No acute calvarial defect. Right parietal scalp hematoma. The visualized paranasal sinuses and the mastoids are clear. IMPRESSION: 1. No CT evidence of an acute intracranial abnormality. If there is concern for an acute or subacute infarct, consider follow-up MRI. 2. Right parietal scalp hematoma. 3. Senescent changes. Electronically signed by: Jorge Marquez MD 02/25/2020 3:37 PM [facility]
--- NOTE | 2020-02-25 15:46 | CT ---
EXAM DESCRIPTION: CT-Cervical Spine CLINICAL HISTORY: fall COMPARISON: None Available. TECHNIQUE: Multiple axial images of the cervical spine without contrast. Multiplanar reformatted images. This exam was performed according to our departmental dose-optimization program, which includes automated exposure control, adjustment of the mA and/or kV according to patient size and/or use of iterative reconstruction technique. FINDINGS: Straightening of the normal cervical lordosis. Vertebral body stature is maintained. There is no acute fracture or destructive osseous lesion. Advanced multilevel spondylitic changes throughout the cervical spine with moderate to severe disc narrowing from C3-C4 through C6-C7. Multilevel disc osteophyte complexes, facet hypertrophy, and uncovertebral spurring with moderate to high-grade bilateral neural foraminal narrowing from C4-C5 through C6-7. No CT evidence for high-grade spinal canal stenosis. Calcific plaque in the visualized arteries. The visualized lung apices are clear. IMPRESSION: 1. No CT evidence of an acute osseous abnormality in the cervical spine. 2. Advanced multilevel spondylitic changes. Electronically signed by: Jorge Marquez MD 02/25/2020 3:45 PM [facility]
[2020-02-25 16:20] VITALS: BP 161/59; O2SAT 94
== END 2020-02-25 16:20 | disposition home or self-care (01) ==
LOC: ER 14:38
DX: S06.0X9A Concussion with loss of consciousness of unspecified duration, initial encounter (principal); M54.2 Cervicalgia; I11.0 Hypertensive heart disease with heart failure; I50.9 Heart failure, unspecified; I48.91 Unspecified atrial fibrillation; Z95.810 Presence of automatic (implantable) cardiac defibrillator; Z88.8 Allergy status to other drugs, medicaments and biological substances; Z79.899 Other long term (current) drug therapy; Z79.01 Long term (current) use of anticoagulants; W01.0XXA Fall on same level from slipping, tripping and stumbling without subsequent striking against object, initial encounter; Y92.9 Unspecified place or not applicable

== ENCOUNTER → 2020-03-31 | Outpatient (CLI) | payer MEDICARE, OTHER | LOC: LAB.O 10:35 | PROVIDERS: ATTEND Internal Medicine Gastroenterology | DX: R19.7 Diarrhea, unspecified (principal) ==

== ENCOUNTER 2020-06-22 08:10 | Emergency (ER) | payer MEDICARE, OTHER ==
[2020-06-22] MEDS ORDERED: SODIUM CHLORIDE 0.9% 1000ML 500 ML IVS ONE (08:26)
--- NOTE | 2020-06-22 08:29 | ED.PDOC ---
History of Present Illness - General Chief Complaint: General Stated Complaint: general weakness, dry mouth, light headed Time Seen by Provider: 06/22/20 08:22 Source: patient Exam Limitations: no limitations - History of Present Illness Initial Comments: The patient is a 75 year old with past medical history as below who presents after accidental medication overdose. She states that she typically keeps all of her night-time medications together in a bottle. Last night she fell asleep watching TV and woke around 11pm, picked up a bottle of medication, and swallowed several pills. She then realized that she had accidentally taken her clonidine 0.1mg tabs. She then took her usual night time medications and went to sleep. This morning she complains of feeling mildly light-headed, generally weak and dry mouth. She does not have any focal symptoms. No other complaints at this time. Allergies/Adverse Reactions: Allergies Enoxaparin [From Lovenox] Allergy (Verified 06/22/20 08:26) Hives Levofloxacin [From Levaquin] Allergy (Verified 06/22/20 08:26) Steroids Allergy (Severe, Uncoded 06/22/20 08:26) Anaphylaxis Pt states that after administration of any steroids her mouth swells and she can not speak Home Medications: Ambulatory Orders Ascorbic Acid [Vitamin C] 2,000 mg PO DAILY 09/05/12 Cholecalciferol [Vitamin D3] 1,000 unit PO DAILY 09/05/12 Fenofibrate 160 mg PO DAILY 09/05/12 Fish Oil-Cholecalciferol [Fish Oil + D3 8571-9007 mg-Unit] 2 cap PO AM 09/05/12 Furosemide [Lasix] 40 mg PO DAILY 06/02/14 Atorvastatin Calcium [Lipitor] 20 mg PO BEDTIME 03/22/17 Rivaroxaban [Xarelto] 20 mg PO BEDTIME 03/22/17 Spironolactone 25 mg PO DAILY 03/22/17 Amiodarone HCl [Amiodarone Hydrochloride] 200 mg PO BID 12/31/19 Calcium Carbonate-Cholecalcife [Calcium 600+D 600-800 mg-Unit] 1 tab PO DAILY 12/31/19 Garlic 1,000 mg PO DAILY 12/31/19 Primidone 50 mg PO TID 12/31/19 Sacubitril-Valsartan [Entresto 49-51 mg] 1 tablet PO BID 12/31/19 Review of Systems - Review of Systems Constitutional: Denies: chills, fever EENTM: States: other - Dry Mouth. Denies: blurred vision Respiratory: Denies: cough, orthopnea, short of breath Cardiology: Denies: chest pain, palpitations, syncope Gastrointestinal/Abdominal: Denies: abdominal pain, diarrhea, nausea, vomiting Musculoskeletal: Denies: back pain, joint pain, joint swelling Skin: States: no symptoms reported Neurological: States: anxiety, weakness - generalized Endocrine: States: no symptoms reported Hematologic/Lymphatic: States: no symptoms reported All other Systems: Reviewed and Negative Past Medical History (General) - Patient Medical History Hx Seizures: No Hx Stroke: No Hx Dementia: No Hx Asthma: No Hx of COPD: No Hx Cardiac Disorders: Yes Hx Congestive Heart Failure: Yes Hx Pacemaker: Yes - defibrilator Hx Hypertension: Yes Hx Thyroid Disease: No Hx Diabetes: No Hx Gastroesophageal Reflux: No Hx Renal Disease: No Hx Cancer: No Hx of HIV: No Hx Hepatitis C: No Hx MRSA: No - Vaccination History Hx Tetanus, Diphtheria Vaccination: No - unknown Hx Influenza Vaccination: No Hx Pneumococcal Vaccination: Yes - Social History Hx Tobacco Use: No Hx Chewing Tobacco Use: No Hx Alcohol Use: No Hx Substance Use: No Hx Substance Use Treatment: No Hx Depression: No Hx Physical Abuse: No Hx Emotional Abuse: No Hx Suspected Abuse: No - Female History Patient : No Family Medical History - Family History Brother Living Status: Hx Cardiac Disease: Yes - brother/sister Hx Family Cancer: - natividad mitchell Hx Family;Other: DEMENTIA-mom Grandparents Living Status: Hx Family Cancer: Yes Mother Family History: Unknown Living Status: Hx Family Asthma: No Hx Family Congestive Heart Failure: No Hx Family Hypertension: No Hx Family Stroke: No Hx Cardiac Disease: No Hx Family Diabetes: No Hx Family Cancer: No Hx Family;Other: Dementia Physical Exam - Physical Exam General Appearance: Comfortable, No apparent distress, Well Developed, Well Groomed, Well Nourished Ears, Nose, Throat: hearing grossly normal, normal ENT inspection Respiratory: no respiratory distress, no accessory muscle use Cardiovascular/Chest: normal peripheral pulses, regular rate, rhythm Peripheral Pulses: radial,right: 2+, radial,left: 2+, dorsalis pedis,right: 2+, dorsalis pedis,left: 2+ Rectal Exam: deferred Extremity: normal range of motion, normal inspection, no pedal edema Neurologic: rd manager II-XII nml as tested, no motor/sensory deficits, alert, normal mood/affect, oriented x 3 Skin Exam: normal color, warm/dry Progress - Progress Progress: 06/22/20 09:11 Patient reassessed, blood pressure is normal and she does not have significant bradycardia or [employer] depression. She has mild generalized weakness and dry mouth. It has been 10 hours since her ingestion and she is medically cleared at this time. Discussed precautions when taking medications. She will return to the ED for any worsening or persistent symptoms. - Results/Orders Results/Orders: 06/22/20 08:45 EKG STAT Laboratory Results - last 24 hr 06/22/20 06/22/20 06/22/20 08:47 08:47 08:47 WBC 5.0 RBC 3.55 L Hgb 11.6 L Hct 35.1 L MCV 99.1 H MCH 32.6 H MCHC 32.9 L RDW 13.4 Plt Count 198 MPV 9.1 Absolute Neuts (auto) 2.50 Absolute Lymphs (auto) 1.80 Absolute Monos (auto) 0.50 Absolute Eos (auto) 0.20 Absolute Basos (auto) 0.00 Neutrophils % 49.6 Lymphocytes % 35.5 Monocytes % 9.8 H Eosinophils % 4.1 Basophils % 1.0 Sodium 140 Potassium 4.3 Chloride 106 Carbon Dioxide 25 Anion Gap 13.3 BUN 32 H Creatinine 1.25 BUN/Creatinine Ratio 25.6 H Random Glucose 129 H Serum Osmolality 288.0 Calcium 9.4 Troponin I 0.02 - EKG/XRAY/CT Comments: 0816 Paced Rhythm, no STEMI Departure - Departure Clinical Impression: Clonidine overdose Qualifiers: Encounter type: initial encounter Injury intent: accidental or unintentional Qualified Code(s): T46.5X1A - Poisoning by other antihypertensive drugs, accidental (unintentional), initial encounter Time of Disposition: 09:13 Disposition: Discharge to Home or Self Care Condition: Excellent Departure Forms: ED Discharge - Pt. Copy, Patient Portal Self Enrollment Instructions: Accidental Overdose (DC) Diet: resume usual diet Activity: increase activity as tolerated Referrals: Paul Limon MD [Primary Care Provider] - 1-2 Weeks Home Medications: Ambulatory Orders Ascorbic Acid [Vitamin C] 2,000 mg PO DAILY 09/05/12 Cholecalciferol [Vitamin D3] 1,000 unit PO DAILY 09/05/12 Fenofibrate 160 mg PO DAILY 09/05/12 Fish Oil-Cholecalciferol [Fish Oil + D3 0218-7177 mg-Unit] 2 cap PO AM 09/05/12 Furosemide [Lasix] 40 mg PO DAILY 06/02/14 Atorvastatin Calcium [Lipitor] 20 mg PO BEDTIME 03/22/17 Rivaroxaban [Xarelto] 20 mg PO BEDTIME 03/22/17 Spironolactone 25 mg PO DAILY 03/22/17 Amiodarone HCl [Amiodarone Hydrochloride] 200 mg PO BID 12/31/19 Calcium Carbonate-Cholecalcife [Calcium 600+D 600-800 mg-Unit] 1 tab PO DAILY 12/31/19 Garlic 1,000 mg PO DAILY 12/31/19 Primidone 50 mg PO TID 12/31/19 Sacubitril-Valsartan [Entresto 49-51 mg] 1 tablet PO BID 12/31/19 Additional Instructions: Return to the ER with any worsening or persistent symptoms.
[2020-06-22 09:34] VITALS: BP 119/51; TEMP 96.8; O2SAT 96
== END 2020-06-22 09:33 | disposition home or self-care (01) ==
LOC: ER 08:10
DX: T46.5X1A Poisoning by other antihypertensive drugs, accidental (unintentional), initial encounter (principal); R42 Dizziness and giddiness; R53.1 Weakness; I50.9 Heart failure, unspecified; I11.0 Hypertensive heart disease with heart failure; Z95.810 Presence of automatic (implantable) cardiac defibrillator; Z79.01 Long term (current) use of anticoagulants; Z79.899 Other long term (current) drug therapy; Z88.8 Allergy status to other drugs, medicaments and biological substances; Z88.1 Allergy status to other antibiotic agents
CPT/HCPCS: 36415; 80048; 84484; 85025; 93005; J7030